=== PATIENT | female | born 1940 | race Asian ===

== ENCOUNTER 2016-12-15 10:59 | Emergency (ER) | payer MEDICARE, OTHER ==
[~2016-12-15] VITALS: Ht 160 cm; Wt 63.5 kg
[2016-12-15 11:29] VITALS: BP 132/42
[2016-12-15 12:00] LABS: Basophils # (auto) 0.1 uL; Basophils % (auto) 0.5 % (0.0-2.0); CONDITION Y; Eosinophils # (auto) 0.1 uL; Eosinophils % (auto) 1.1 % (0.0-7.0); Hematocrit 41.5 % (36.0-46.0); Hemoglobin 14.1 g/dL (12.2-16.2); Lymphocytes # (auto) 3.3 uL; Lymphocytes % (auto) 29.1 % (10.0-50.0); Mean Corpuscular Hemoglobin 30.6 pg (28.0-32.0); Mean Corpuscular Volume 90.2 fL (80.0-100.0); Mean Platelet Volume 8.6 fL (7.4-10.4); Monocytes # (auto) 0.7 uL; Monocytes % (auto) 6.4 % (0.0-12.0); Neutrophils # (auto) 7.1 uL; Neutrophils % (auto) 62.9 % (37.0-80.0); Platelet Count (auto) 195 10^3/uL (140-450); Red Cell Distribution Width 14.3 % (11.6-16.0); White Blood Cell 11.2 10^3/uL (4.4-10.8)
[2016-12-15] MEDS ORDERED: PHENAZOPYRIDINE HCL 100 MG TAB PO ONE (12:00)
[2016-12-15 12:23] LABS: Albumin 3.9 g/dL (3.4-5.0); BUN/Creatinine Ratio 31.9; Bilirubin, Total 0.5 mg/dL (0.2-1.0); Calcium 9.4 mg/dL (8.5-10.1); Total Protein 7.4 g/dL (6.4-8.2)
[2016-12-15 13:05] LABS: Urine Bilirubin Negative (Negative); Urine Color Brown (Yellow); Urine Glucose Normal (Normal); Urine Ketone Negative (Negative); Urine Urobilinogen Normal (Negative)
[2016-12-15 13:30] LABS: Urine Blood 3+ /uL (Negative); Urine Nitrite POSITIVE (Negative)
[2016-12-15 13:31] LABS: Urine Squamous Epithelial Cell FEW /hpf (<5); Urine WBC Clumps Present /hpf (None Seen)
[2016-12-15] MEDS ORDERED: cefTRIAXone SOD 1,000 MG VL IM ONE (14:00)
== END 2016-12-15 14:20 | disposition home or self-care (01) ==
LOC: ER 10:59
DX: N39.0 Urinary tract infection, site not specified (principal); N20.0 Calculus of kidney; K21.9 Gastro-esophageal reflux disease without esophagitis; I10 Essential (primary) hypertension; E78.5 Hyperlipidemia, unspecified; Z88.0 Allergy status to penicillin
CPT/HCPCS: 36415; 74176; 80053; 81001; 85025; 96372; 99285; J0696

== ENCOUNTER 2017-08-26 14:47 | Emergency (ER) | payer MEDICARE, OTHER ==
[~2017-08-26] VITALS: Ht 162.6 cm; Wt 70.3 kg
[2017-08-26 15:46] LABS: Basophils # (auto) 0.1 uL; Basophils % (auto) 1.2 % (0.0-2.0); Eosinophils # (auto) 0.1 uL; Eosinophils % (auto) 0.8 % (0.0-7.0); Hematocrit 43.8 % (36.0-46.0); Hemoglobin 14.6 g/dL (12.2-16.2); Lymphocytes # (auto) 2.2 uL; Mean Corpuscular Hemoglobin 30.9 pg (28.0-32.0); Mean Corpuscular Hgb Conc. 33.2 g/dL (32.0-36.0); Mean Corpuscular Volume 93.2 fL (80.0-100.0); Monocytes # (auto) 0.6 uL; Monocytes % (auto) 8.9 % (0.0-12.0); Neutrophils # (auto) 3.7 uL; Neutrophils % (auto) 56.1 % (37.0-80.0); Nucleated Red Blood Cells % 0.2 %; Platelet Count (auto) 244 10^3/uL (140-450); Red Cell Distribution Width 15.4 % (11.8-14.3); White Blood Cell 6.6 10^3/uL (4.4-10.8)
[2017-08-26 16:01] LABS: Albumin 3.8 g/dL (3.4-5.0); Anion Gap 9 (5-15); Blood Urea Nitrogen 24 mg/dL (7-18); Calcium 8.8 mg/dL (8.5-10.1); Carbon Dioxide 21 mmol/L (21-32); Chloride 112 mmol/L (98-107); Glucose 111 mg/dL (74-106); Potassium 4.2 mmol/L (3.5-5.1); Sodium 142 mmol/L (136-145)
[2017-08-26 16:03] LABS: Alanine Aminotransferase 82 U/L (13-56); Aspartate Aminotransferase 45 U/L (15-37); BUN/Creatinine Ratio 17.1; GFR African American 47 mL/min; GFR Non-African American 39 mL/min
[2017-08-26 16:08] LABS: Alkaline Phosphatase 80 U/L (45-117); Bilirubin, Total 0.6 mg/dL (0.2-1.0)
[2017-08-26 21:42] VITALS: BP 125/62
== END 2017-08-26 22:11 | disposition home or self-care (01) ==
LOC: MERGE 14:47 → ER 14:47
DX: R06.00 Dyspnea, unspecified (principal); R53.1 Weakness; I10 Essential (primary) hypertension; E78.00 Pure hypercholesterolemia, unspecified; Z87.891 Personal history of nicotine dependence; Z88.0 Allergy status to penicillin
CPT/HCPCS: 36415; 71046; 80053; 84484; 85025; 93005

== ENCOUNTER → 2017-08-27 | Outpatient (CLI) | payer MEDICARE, OTHER ==
[2017-08-29 10:20] LABS: Hepatitis B Surface Antibody Positive
[2017-08-29 10:32] LABS: Hepatitis B Surface Antigen Negative (Negative)
[2017-08-29 10:54] LABS: Hepatitis C Antibody Negative (Negative)
[2017-08-29 10:55] LABS: Hepatitis A Total Antibody Negative
[2017-08-29 12:54] LABS: Hepatitis B Core Total AB Positive
== END | disposition home or self-care (01) ==
LOC: MERGE 14:28 → LAB 14:28
PROVIDERS: ATTEND Physician Assistant
DX: Z11.3 Encounter for screening for infections with a predominantly sexual mode of transmission (principal); I10 Essential (primary) hypertension; E78.00 Pure hypercholesterolemia, unspecified; Z20.2 Contact with and (suspected) exposure to infections with a predominantly sexual mode of transmission; Z87.891 Personal history of nicotine dependence
CPT/HCPCS: 36415; 86592; 86695; 86696; 86704; 86706; 86708; 86803; 87340

== ENCOUNTER → 2021-01-26 | Outpatient (CLI) | payer MEDICARE, OTHER ==
[2021-01-26 11:03] LABS: Urine WBC None Seen /hpf (0 - 5)
[2021-01-26 11:10] LABS: Urine Bacteria NONE SEEN /hpf (None Seen); Urine Blood TRACE /uL (Negative); Urine Specific Gravity 1.005 (1.001-1.035)
== END | disposition home or self-care (01) ==
LOC: LAB 10:59
PROVIDERS: ATTEND Urology
DX: N39.0 Urinary tract infection, site not specified (principal)
CPT/HCPCS: 81001; 87086

== ENCOUNTER → 2021-04-13 | Day surgery (SDC) | payer MEDICARE, OTHER ==
[2021-04-10 11:35] LABS: Urine Bacteria NONE SEEN /hpf (None Seen); Urine Blood Negative /uL (Negative); Urine Specific Gravity 1.016 (1.001-1.035); Urine WBC <1 /hpf (0 - 5)
[2021-04-10 12:06] LABS: Basophils # (auto) 0.1 10 ^3/uL (0-0.2); Basophils % (auto) 0.9 % (0.0-2.0); Eosinophils # (auto) 0.1 10 ^3/uL (0-0.8); Eosinophils % (auto) 1.3 % (0.0-7.0); Hemoglobin 14.4 g/dL (12.2-16.2); Lymphocytes # (auto) 3.1 10 ^3/uL (0.4-5.4); Lymphocytes % (auto) 44.6 % (10.0-50.0); Mean Corpuscular Hemoglobin 31.4 pg (28.0-32.0); Mean Corpuscular Hgb Conc. 34.2 g/dL (32.0-36.0); Monocytes # (auto) 0.7 10 ^3/uL (0-1.3); Monocytes % (auto) 9.4 % (0.0-12.0); Neutrophils % (auto) 43.8 % (37.0-80.0); Red Blood Cells 4.57 10^6/uL (4.0-5.20); Red Cell Distribution Width 14.5 % (11.8-14.3); White Blood Cell 6.9 10^3/uL (4.4-10.8)
[2021-04-10 12:13] LABS: Potassium 3.9 mmol/L (3.5-5.1)
[2021-04-10 13:01] LABS: Albumin 3.6 g/dL (3.4-5.0); BUN/Creatinine Ratio 32.8; Bilirubin, Total 0.3 mg/dL (0.2-1.0); Calcium 9.6 mg/dL (8.5-10.1); Total Protein 7.3 g/dL (6.4-8.2)
[~2021-04-13] VITALS: Ht 162.6 cm; Wt 70.3 kg
[~2021-04-13] MED LIST: AMLO-489 PO; ATOR20TA PO; DexAMETHasone SOD PHOS 10MG/1ML VIAL INJ ONE; HYDROmorphone HCL 2 MG/ML VL IV PRN; LABETALOL HCL 5 MG/ML 4ML SYRINGE IV PRN; MEPERIDINE HCL (25 MG/ML) 1ML VIAL ONE; MIDAZOLAM HCL 2MG/2ML 2ml VIAL (1mg/ml) IV PRN; MIDAZOLAM HCL 2MG/2ML 2ml VIAL (1mg/ml) ONE; MORPHINE SULFATE 4 MG/ML SYR/VIAL IV PRN; OMEP-434 PO; ONDANSETRON HCL 4 MG/2 ML VIAL IV PRN; PROPOFOL 10 MG/ML 20 ML IV ONE; ceFAZolin 1GM/50ML 50 ML IV ONE; ePHEDrine SULFATE 50 MG/ML AMP IV PRN; fentaNYL CITRATE 100 MCG/2 ML VL ONE; hydrALAZINE HCL 20 MG/ML VL IV PRN
[2021-04-13 14:30] VITALS: BP 136/61
== END | disposition home or self-care (01) ==
LOC: SUR 08:40
PROVIDERS: ATTEND Urology
DX: N32.9 Bladder disorder, unspecified (principal); I25.10 Atherosclerotic heart disease of native coronary artery without angina pectoris; I10 Essential (primary) hypertension; E78.5 Hyperlipidemia, unspecified; Z88.0 Allergy status to penicillin; Z79.899 Other long term (current) drug therapy; Z98.890 Other specified postprocedural states; Z20.822 Contact with and (suspected) exposure to COVID-19
CPT/HCPCS: 36415; 52224; 80053; 81001; 85025; J0690; J1100; J2175; J2250; J2405; J2704; J3010; J7030; U0003

== ENCOUNTER → 2022-08-10 | Outpatient (CLI) | payer MEDICARE, OTHER ==
[~2022-08-10] MED LIST changes: -DexAMETHasone SOD PHOS 10MG/1ML VIAL INJ ONE; -HYDROmorphone HCL 2 MG/ML VL IV PRN; -LABETALOL HCL 5 MG/ML 4ML SYRINGE IV PRN; -MEPERIDINE HCL (25 MG/ML) 1ML VIAL ONE; -MIDAZOLAM HCL 2MG/2ML 2ml VIAL (1mg/ml) IV PRN; -MIDAZOLAM HCL 2MG/2ML 2ml VIAL (1mg/ml) ONE; -MORPHINE SULFATE 4 MG/ML SYR/VIAL IV PRN; -ONDANSETRON HCL 4 MG/2 ML VIAL IV PRN; -PROPOFOL 10 MG/ML 20 ML IV ONE; -ceFAZolin 1GM/50ML 50 ML IV ONE; -ePHEDrine SULFATE 50 MG/ML AMP IV PRN; -fentaNYL CITRATE 100 MCG/2 ML VL ONE; -hydrALAZINE HCL 20 MG/ML VL IV PRN
== END | disposition home or self-care (01) ==
LOC: LAB 13:40
PROVIDERS: ATTEND Family Medicine
DX: L82.1 Other seborrheic keratosis (principal)
CPT/HCPCS: 88302

== ENCOUNTER 2023-11-11 10:06 | Emergency (ER) | payer MEDICARE, OTHER ==
[~2023-11-11] VITALS: Ht 162.6 cm; Wt 74.7 kg
[~2023-11-11 10:06] MED LIST changes: -AMLO-489 PO; +AMLO1TAB22 PO
[2023-11-11 14:23] VITALS: BP 118/54; PULSE 70; RESP 19; TEMP 97.8; O2SAT 93
[2023-11-11] MEDS ORDERED: ACET-1882 PO (14:23)
== END 2023-11-11 14:23 | disposition home or self-care (01) ==
LOC: ER 10:06
DX: S83.91XA Sprain of unspecified site of right knee, initial encounter (principal); K21.9 Gastro-esophageal reflux disease without esophagitis; E78.5 Hyperlipidemia, unspecified; I10 Essential (primary) hypertension; Z88.0 Allergy status to penicillin; X50.1XXA Overexertion from prolonged static or awkward postures, initial encounter; Y93.01 Activity, walking, marching and hiking; Y92.89 Other specified places as the place of occurrence of the external cause; Y99.8 Other external cause status
CPT/HCPCS: 29505; 73564

== ENCOUNTER 2024-04-21 17:15 | Emergency (ER) | payer MEDICARE, OTHER ==
[~2024-04-21] VITALS: Ht 162.6 cm; Wt 74.8 kg
[~2024-04-21 17:15] MED LIST changes: +ACET-1882 PO
--- NOTE | 2024-04-21 19:08 | DVH ---
Procedure: CT MAXILLOFACIAL WITHOUT Study Date and Requested Time: 04/21/2024 06:27 PM History: fall Comparison: None Dose: CTDI: 64.71 mGy DLP: 1285.38 mGycm Technique: Multiplanar images obtained through the face without intravenous contrast. Findings: No evidence of acute fracture . Status post rhinoplasty. Nonspecific 0.4 by 0.2 cm density over the left upper eye lid. Otherwise, Orbits and globes grossly u nremarkable. Mild mucoperiosteal thickening of the ethmoid air cells . Otherwise , the Paranasal sinuses and mast oids clear. Nasal septum midline position. Nasal cavity and visualized nasopharynx and oropharynx grossly unremar kable with no evidence of focal lesion. Bilateral palatine tonsilliths are noted. 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 Impression: No evidence of acute traumatic fractures. 0.2 x 0.4 cm density over the right upper eyelid. Correlate for possible foreign body. Otherwise, or bits and globes are unremarkable.
--- NOTE | 2024-04-21 19:30 | ED.PDOC ---
[place]. trauma (HPI) HPI Comments 84yo female complaining of Rt side facial pain after having trip and fall today. says she was turning when her Rt knee gave out and she fell to the floor hitting her face on the floor. no LOC. no visual problems. denies being on any blood thinners Chief Complaint: Fall Injury Time Seen by MD: 17:50 Primary Care Provider: JONI Reviewed notes: Nurses Notes Allergies: Coded Allergies: Penicillins (Verified Allergy, Unknown, 12/15/16) Home Meds Active Scripts Acetaminophen (Acetaminophen) 325 Mg Tab, 325 MG PO QID for 7 Days, #28 TAB 0 Refills Prov:MOY DE LOS SANTOS Jeevan UNIFORM ATTENDANT 11/11/23 Reported Medications Omeprazole Magnesium (Omeprazole) 20 Mg Tab, 20 MG PO, TAB 04/10/21 Amlodipine Besylate (Amlodipine Besylate) 5 Mg Tab, 5 MG PO DAILY, TAB 04/10/21 Atorvastatin Calcium (Lipitor) 20 Mg Tab, 20 MG PO DAILY, TAB 04/10/21 Information Source: Patient Mode of Arrival: Ambulatory Severity: Mild Past Medical History PAST MEDICAL HISTORY: GERD, High Lipids, HTN Surgical History: Denies all surgeries PROFESSOR OF APOLOGETICS History: No Pertinent PROFESSOR OF APOLOGETICS History Family History Family History: Reviewed,noncontributory to illness, Unknown Social History Smoker: Non-Smoker Alcohol: Denies ETOH Use Drugs: Denies Drug Use Lives In: Home Constitutional: denies: chills, diaphoresis, fatigue, fever, malaise, sweats, weakness, others EENTM: denies: blurred vision, double vision, ear bleeding, ear discharge, ear drainage, ear pain, ear ringing, eye pain, eye redness, hearing loss, mouth pain, mouth swelling, nasal discharge, nose bleeding, nose congestion, nose pain, photophobia, tearing, throat pain, throat swelling, voice changes, others Respiratory: denies: cough, hemoptysis, orthopnea, SOB at rest, shortness of breath, SOB with excertion, stridor, wheezing, others Cardiovascular: denies: chest pain, dizzy spells, diaphoresis, Dyspnea on exertion, edema, irregular heart beat, left arm pain, lightheadedness, palpitations, PND, syncope, others Gastrointestinal: denies: abdomen distended, abdominal pain, blood streaked bowels, constipated, diarrhea, dysphagia, difficulty swallowing, hematemesis, melena, nausea, poor appetite, poor fluid intake, rectal bleeding, rectal pain, vomiting, others Genitourinary: denies: abnormal vagina bleeding, burning, dyspareunia, dysuria, flank pain, frequency, hematuria, incontinence, pain, , vagina discharge, urgency, others Neurological: denies: dizziness, fainting, headache, left sided numbness, left sided weakness, numbness, paresthesia, pre-existing deficit, right sided numbness, right sided weakness, seizure, speech problems, tingling, tremors, weakness, others Musculoskeletal: denies: back pain, gout, joint pain, joint swelling, muscle pain, muscle stiffness, neck pain, others Integumetry: denies: bruises, change in color, change in hair/nails, dryness, laceration, lesions, lumps, rash, wounds, others Allergic/Immunocompromised: denies: Difficulty Healing, Frequent Infections, Hives, Itching, others Hematologic/Lymphatic: denies: anemia, blood clots, easy bleeding, easy bruising, swollen glands, others Physical Exam General Appearance: No Apparent Distress, Normal HEENT: Head (Pelvic, swelling noted on the right-sided cheek, no deformity, no crepitus.) Neck: Full Range of Motion, Non-Tender, Normal, Normal Inspection Respiratory: Chest Non-Tender, Lungs Clear, No Accessory Muscle Use, No Respiratory Distress, Normal Breath Sounds Cardiovascular: No Edema, No JVD, No Murmur, No Gallop, Normal Peripheral Pulses, Regular Rate/Rhythm Breast Exam: Deferred Gastrointestinal: No Organomegaly, Non Tender, No Pulsatile Mass, Normal Bowel Sounds, Soft Genitalia: Deferred Pelvic: Deferred Rectal: Deferred Extremities: No calf tenderness, Normal capillary refill, Normal inspection, Normal range of motion, Non-tender, No pedal edema Musculoskeletal : Apperance: Normal Neurologic: Alert, hims manager II-XII nml as Tested, No Motor Deficits, Normal Affect, Normal Mood, No Sensory Deficits Cerebellar Function: Normal Reflexes: Normal Skin: Dry, Normal Color, Warm Lymphatic: No Adenopathy Was a procedure done? Was a procedure done?: No Differential Diagnosis Multiple Trauma: Closed Head Injury, Cardiac Injury, Fractures X-Ray, Labs, Meds, VS Vital Signs Date Time Temp Pulse Resp B/P (MAP) Pulse Ox O2 Delivery O2 Flow Rate FiO2 04/21/24 17:48 77 04/21/24 17:45 97.8 86 16 124/69 (87) 96 X-Ray, Labs, Meds, VS Comment Imaging: X-rays and CT scans were reviewed and interpreted by this provider, imaging shows no fractures and no pathological disease. Pending radiology review. Laboratory: Labs reviewed and interpreted by this provider. No significant abnormalities noted. Patient has prior medical visits reviewed. Med reconciliation performed Vital signs reviewed Time of 1ST Reevaluation: 19:29 Reevaluation 1ST: Improved Patient Education/Counseling: Diagnosis, Treatment, Need For Follow Up (Patient advised to follow-up in the emergency room in the next 24 to 48 hours if symptoms do not improve. Advised follow-up with PCP in the next 3 to 5 days. Patient verbalized understanding. ) Family Education/Counseling: No Family Present Departure 1 Departure Time of Disposition: 19:29 Impression: Primary Impression: Facial contusion Qualified Codes: S00.83XA - Contusion of other part of head, initial encounter Disposition: HOME / SELF CARE / HOMELESS Condition: Fair Discharged With: Self Critical Care Note Critical Care Time?: No Stability Stability form required: No Heart Score Heart Score: Heart Score Response (Comments) Value History N/A 0 EKG N/A 0 Age N/A 0 Risk Factors N/A 0 Troponin N/A 0 Total 0 UNIQUE BATISTA Apr 21, 2024 19:30
[2024-04-21 23:00] VITALS: BP 132/72; PULSE 72; RESP 18; TEMP 98; O2SAT 96
--- NOTE | 2024-04-22 14:40 | ECG ---
[facility] Test Date: 2024-04-21 Test Time: 17:48:24 Pat Name: VLAD PENA Department: er Room: Gender: F Setup Technician: gp : [id number] Requested By: UNIQUE BATISTA Order Number: [id number] Reading MD: Measurements Intervals [place] Rate: 77 P: 55 OR: 170 QRS: 18 QRSD: 83 T: -8 QT: 381 QTc: 432 Interpretive Statements Sinus rhythm Borderline T abnormalities, inferior leads Please click the below link to view image of tracing.
== END 2024-04-21 23:12 | disposition home or self-care (01) ==
LOC: ER 17:15
DX: S00.83XA Contusion of other part of head, initial encounter (principal); I10 Essential (primary) hypertension; K21.9 Gastro-esophageal reflux disease without esophagitis; E78.5 Hyperlipidemia, unspecified; Z88.0 Allergy status to penicillin; Z79.899 Other long term (current) drug therapy; W01.198A Fall on same level from slipping, tripping and stumbling with subsequent striking against other object, initial encounter; Y93.89 Activity, other specified; Y92.89 Other specified places as the place of occurrence of the external cause; Y99.8 Other external cause status
CPT/HCPCS: 70486; 93005

== ENCOUNTER 2025-05-08 10:26 | Inpatient (IN) | payer MEDICARE, OTHER ==
[~2025-05-08] VITALS: Ht 162.6 cm; Wt 78.0 kg
--- NOTE | 2025-05-08 12:28 | ED.PDOC ---
History of Present Illness HPI Comments 85 y/o F, with a Hx of GERD, presents with c/c of nonradiating, epigastric abdominal pain. Patient endorses on sudden onset of symptoms, this morning, after eating her breakfast and taking her morning medications. No recent trauma, sick contacts, or spicy or spoiled food consumption. She denies any nausea, v omiting, diarrhea, constipation, urinary problems, or further acute symptoms. Notable recent bronchitis diagnosis and antibiotic placement following urgent care visit on 05/03/25. Patient reports stopping antibiotics after taking it for the first time on 05/05/25, due to causing her mild abdominal discomfort, which subsided prior to today's pain onset. Chief Complaint: Abdominal Pain Time Seen by MD: 12:20 Primary Care Provider: JONI Reviewed Notes: Nurses Notes, Medications, Allergies Allergies: Coded Allergies: Penicillins (Verified Allergy, Unknown, 12/15/16) Home Meds Active Scripts Acetaminophen (Acetaminophen) 325 Mg Tab, 325 MG PO QID for 7 Days, #28 TAB 0 Refills Prov:MOY DE LOS SANTOS GEODETIC COMPUTATOR 11/11/23 Reported Medications Omeprazole Magnesium (Omeprazole) 20 Mg Tab, 20 MG PO, TAB 04/10/21 Amlodipine Besylate (Amlodipine Besylate) 5 Mg Tab, 5 MG PO DAILY, TAB 04/10/21 Atorvastatin Calcium (Lipitor) 20 Mg Tab, 20 MG PO DAILY, TAB 04/10/21 Information Source: Patient Mode of Arrival: Ambulatory Severity: Moderate Timing: Hours Duration: Since onset Prehospital treatment: None Past Medical History PAST MEDICAL HISTORY: GERD, High Lipids, HTN Surgical History: Denies all surgeries EDUCATIONAL RECRUITER History: No Pertinent EDUCATIONAL RECRUITER History Family History Family History: Reviewed,noncontributory to illness, Unknown Social History Smoker: Non-Smoker Alcohol: Denies ETOH Use Drugs: Denies Drug Use Lives In: Home All Other Systems: Reviewed and Negative (Comprehensive review of systems are negative unless stated in HPI) Physical Exam General Appearance: No Apparent Distress, Normal HEENT: Normal ENT Inspection, Pharynx Normal, TMs Normal Neck: Full Range of Motion, Non-Tender, Normal, Normal Inspection Respiratory: Chest Non-Tender, Lungs Clear, No Accessory Muscle Use, No Respiratory Distress, Normal Breath Sounds Cardiovascular: No Edema, No JVD, No Murmur, No Gallop, Normal Peripheral Pulses, Regular Rate/Rhythm Breast Exam: Deferred Gastrointestinal: Epigastric (tenderness), No Organomegaly, No Pulsatile Mass, Normal Bowel Sounds, Soft, Tenderness (epigastric ) Genitalia: Deferred Pelvic: Deferred Rectal: Deferred Extremities: No calf tenderness, Normal capillary refill, Normal inspection, Normal range of motion, Non-tender, No pedal edema Musculoskeletal : Apperance: Normal Neurologic: Alert, sr risk management consultant II-XII nml as Tested, No Motor Deficits, Normal Affect, Normal Mood, No Sensory Deficits Cerebellar Function: Normal Reflexes: Normal Skin: Dry, Normal Color, Warm Lymphatic: No Adenopathy Was a procedure done? Was a procedure done?: No Differential Dx Considerations may include: gastritis, gastroenteritis, GERD, PUD, cholelithiasis, cholecystitis, among others X-Ray, Labs, Meds, VS Vital Signs Date Time Temp Pulse Resp B/P (MAP) Pulse Ox O2 Delivery O2 Flow Rate FiO2 05/08/25 10:54 72 05/08/25 10:37 98.1 80 18 141/74 95 98.1 Lab Test 05/08/25 12:20 Range/Units White Blood Count 8.1 4.4-10.8 10^3/uL Red Blood Count 5.25 H 4.0-5.20 10^6/uL Hemoglobin 16.1 12.2-16.2 g/dL Hematocrit 47.9 H 36.0-46.0 % Mean Corpuscular Volume 91.3 80.0-100.0 fL Mean Corpuscular Hemoglobin 30.6 28.0-32.0 pg Mean Corpuscular Hemoglobin Concent 33.5 32.0-36.0 g/dL Red Cell Distribution Width 14.4 H 11.8-14.3 % Platelet Count 208 140-450 10^3/uL Mean Platelet Volume 8.5 6.9-10.8 fL Neutrophils (%) (Auto) 59.2 37.0-80.0 % Lymphocytes (%) (Auto) 27.1 10.0-50.0 % Monocytes (%) (Auto) 9.7 0.0-12.0 % Eosinophils (%) (Auto) 3.2 0.0-7.0 % Basophils (%) (Auto) 0.8 0.0-2.0 % Neutrophils # (Auto) 4.8 1.6-8.6 10 ^3/uL Lymphocytes # (Auto) 2.2 0.4-5.4 10 ^3/uL Monocytes # (Auto) 0.8 0-1.3 10 ^3/uL Eosinophils # (Auto) 0.3 0-0.8 10 ^3/uL Basophils # (Auto) 0.1 0-0.2 10 ^3/uL Nucleated Red Blood Cells 0.1 % Sodium Level 142 136-145 mmol/L Potassium Level 3.8 3.5-5.1 mmol/L Chloride Level 108 H 98-107 mmol/L Carbon Dioxide Level 20 20-31 mmol/L Anion Gap 14 5-15 Blood Urea Nitrogen 16 9-23 mg/dL Creatinine 0.73 0.550-1.02 mg/dL Glomerular Filtration Rate Calc 82 >90 mL/min BUN/Creatinine Ratio 21.9 H 10.0-20.0 Serum Glucose 136 H 74-106 mg/dL Calcium Level 9.4 8.7-10.4 mg/dL Total Bilirubin 0.5 0.2-1.0 mg/dL Aspartate Amino Transferase (AST) 46 H 13-40 U/L Alanine Aminotransferase (ALT) 62 H 7-40 U/L Alkaline Phosphatase 88 46-116 U/L Total Protein 7.6 5.7-8.2 g/dL Albumin 4.5 3.2-4.8 g/dL Lipase 63 H 12-53 U/L Time of 1ST Reevaluation: 12:50 Reevaluation 1ST: Unchanged Patient Education/Counseling: Diagnosis, Treatment Family Education/Counseling: No Family Present SEPSIS Sepsis Screen Date sepsis recognized/suspect: May 08, 2025 Time Sepsis recognized/suspect: 1042 Recent Procedure: No On Antibiotic Therapy: Yes Respiratory Rate >20: No Heart Rate >90: No Temp<36 C (96.8 F) or >38.3 C: No SBP <90 or MAP <65 mmHG: No New Acute Mental Status Change: No Is the patient on CPAP, BIPAP,: No Physician Orders Electrocardigram (05/08/25 10:47) Urinalysis (05/08/25 12:21) Chest Portable (05/08/25 12:21) Ct Ab Pel Wo Con-No Oral Or Iv (05/08/25 13:18) Vital Signs Date Time Temp Pulse Resp B/P (MAP) Pulse Ox O2 Delivery O2 Flow Rate FiO2 05/08/25 10:54 72 05/08/25 10:37 98.1 80 18 141/74 95 98.1 Laboratory Tests Test 05/08/25 12:20 White Blood Count 8.1 10^3/uL (4.4-10.8) Departure 1 Departure Time of Disposition: 15:58 (Patient presented with abdominal pain that was concerning for possible appendicits, gastritis, cholecystitis, colitis, gastroenteritis, sbo, or orther possible surgical emergency. Data: 1. I ordered and reviewed the result of at least 3 labs including a CBC, BMP, and Urinalysis. 2. I independently interpreted the following tests: CT Abdomen and Pelvis is concerning for large stool burden .Risk:This patient has a high risk of morbidity due to further diagnostic testing or treatment and may suffer from an acute abdominal process disorder. Workup reveals intractable abdominal pain and patient should be admitted for further workup. and possible expert consultation. ) Impression: Primary Impression: Intractable abdominal pain Additional Impression: Unable to eat Disposition: ADMITTED INPATIENT Admit to: Med Surg Condition: Guarded Critical Care Note Critical Care Time?: Yes Critical care comment: Intractable abdominal pain Authorized and Performed by: Beck Charles MD Total critical care time: Approximately 39 minutes Due to a high probability of clinically significant, life threatening deterioration, the patient required my highest level of preparedness to intervene emergently and I personally spent this critical care time directly and personally managing the patient. This critical care time included obtaining a history; examining the patient; pulse oximetry; ordering and review of studies; arranging urgent treatment with development of a management plan; evaluation of patient's response to treatment; frequent reassessment; and, discussions with other providers. This critical care time was performed to assess and manage the high probability of imminent, life-threatening deterioration that could result in multi-organ failure. It was exclusive of separately billable procedures and treating other patients and teaching time. Please see my other sections and the rest of the note for further information on patient assessment and treatment. Stability Stability form required: No Heart Score Heart Score: Heart Score Response (Comments) Value History N/A 0 EKG N/A 0 Age N/A 0 Risk Factors N/A 0 Troponin N/A 0 Total 0 I personally scribed for BECK CHARLES MD ([email or web address]) on 05/08/25 at 12:28. Electronically submitted by Gurmeet Parr ([email or web address]). BECK CHARLES MD May 08, 2025 12:28
[2025-05-08 13:03] LABS: Hematocrit 47.9 % (36.0-46.0); Hemoglobin 16.1 g/dL (12.2-16.2); Mean Corpuscular Hemoglobin 30.6 pg (28.0-32.0); Mean Corpuscular Volume 91.3 fL (80.0-100.0); Nucleated Red Blood Cells % 0.1 %
--- NOTE | 2025-05-08 13:05 | DVH ---
CLINICAL HISTORY: epigastric pain TECHNIQUE: Single view of the chest was obtained. COMPARISON: CXR2 on DOS: 12/15/21, CHEST TWO VIEWS ROUTINE on DOS: 12/15/21, CHEST TWO VIEWS ROUTINE on DOS: 06/04/21, CHEST TWO VIEWS ROUTINE on DOS: 04/10/21 FINDINGS: The heart size and pulmonary vasculature are normal. The lungs are clear. IMPRESSION: NO ACUTE CARDIOPULMONARY PROCESS.
[2025-05-08 13:22] LABS: Albumin 4.5 g/dL (3.2-4.8); Alkaline Phosphatase 88 U/L (46-116); Anion Gap 14 (5-15); BUN/Creatinine Ratio 21.9 (10.0-20.0); Blood Urea Nitrogen 16 mg/dL (9-23); Calcium 9.4 mg/dL (8.7-10.4); Potassium 3.8 mmol/L (3.5-5.1); Sodium 142 mmol/L (136-145); Total Protein 7.6 g/dL (5.7-8.2)
[2025-05-08 13:23] LABS: Bilirubin, Total 0.5 mg/dL (0.2-1.0)
[2025-05-08 13:52] LABS: Alanine Aminotransferase 62 U/L (7-40); Carbon Dioxide 20 mmol/L (20-31); Chloride 108 mmol/L (98-107); Glucose 136 mg/dL (74-106); Lipase 63 U/L (12-53)
--- NOTE | 2025-05-08 14:42 | DVH ---
EXAM: CT CT AB PEL WO CON-NO ORAL OR IV INDICATION: abdominal pain TECHNIQUE: Volumetric multidetector CT images of the abdomen and pelvis were obtained without contrast. All CT scans at this facility use dose modulation, iterative reconstruction, and/or weight based dosing when appropriate to reduce radiation dose to as low as reasonably achievable. COMPARISON: CT ABD PELVIS WO CONTRAST on DOS: 01/26/21 FINDINGS: [LOWER CHEST]: The partially visualized lung bases are clear without a pleural effusion. The cardiac size is normal without pericardial effusion. Coronary artery calcifications. [LIVER]: Normal hepatic size without suspicious focal lesion. [GALLBLADDER AND BILIARY TREE]: No cholelithiasis. [SPLEEN]: Unremarkable. [PANCREAS]: Unremarkable. [ADRENAL GLANDS]: Unremarkable [KIDNEYS]: Benign-appearing cysts of the left posterior inferior kidney. No hydronephrosis. No nephroureterolithiasis. No suspicious focal lesion. [BLADDER]: Unremarkable for the degree distention. [REPRODUCTIVE ORGANS]: Unremarkable. [BOWEL/MESENTERY]: Stomach is normal. [id number] stool burden. Ascending colonic diverticulosis. Appendix is poorly visualized. Appearance of small bowel fecalization in the lower pelvis. No CT evidence of bowel obstruction. [ASCITES]: Absent [LYMPHADENOPATHY]: No pathologically enlarged lymph nodes by CT size criteria [VASCULATURE]: No aneurysmal dilatation. [ABDOMINAL WALL]: Gluteal subcutaneous adipose tissue calcifications. Unremarkable. [MUSCULOSKELETAL]: No acute fracture or aggressive focal osseous lesion. Apposing degenerative change at L4-5. Multifocal degenerative change of the visualized spine. IMPRESSION: 1. [id number] stool burden. 2. Correlate for constipation. 3. Small bowel fecalization in the lower pelvis. 4. Correlate for slow small bowel transit versus malabsorption.
[2025-05-08] MEDS: ONDANSETRON ODT 4 MG TAB PO ONE (17:47)
[2025-05-08] MEDS: MAALOX PLUS or MAALOX 30 ML PO ONE (17:47)
[2025-05-08] MEDS: PANTOPRAZOLE 40 MG/10 ML VIAL INJ IV ONE (17:47)
[2025-05-08] MEDS: SODIUM CHLORIDE 0.9% 1,000 ML IV ONE (17:49)
[2025-05-08] MEDS ORDERED: HYDROcodone-ACET 5/325MG TAB PO PRN (22:15)
[2025-05-08] MEDS ORDERED: ACETAMINOPHEN 325 MG TAB PO PRN (22:15)
[2025-05-08] MEDS ORDERED: ONDANSETRON HCL 4 MG/2 ML VIAL IV PRN (22:15)
--- NOTE | 2025-05-08 23:50 | DVHHP2 ---
History of Present Illness Reason for Visit: Intractable abdominal pain History of Present Illness The patient is a 85-year-old female with past medical history of GERD, hyperlipidemia, and hypertension who presented to [facility] ED with complaint of nonradiating epigastric abdominal pain. Patient reports sudden onset of symptoms, this morning, after eating her breakfast and taking her morning medications. Patient was recently seen at urgent care on May 03, 2025 for bronchitis and was placed on antibiotic regimen. Patient reports stopping antibiotics after taking it for the first time on 05/05/25, due to causing her mild abdominal discomfort, which subsided prior to today's pain onset. Patient was seen and evaluated in the ED, laboratory data shows WBC 8.1, platelets 208, sodium 142, potassium 3.8, BUN 16, creatinine 0.73, GFR 82, glucose 136, calcium 9.4, AST 46, ALT 62, lipase 63, blood pressure 175/75, heart rate 86, temperature 97.6 F, O2 saturation 96% on room air. Abdomen/pelvis CT revealing mild to moderate stool burden correlate for constipation; small-bowel fecalization in the lower pelvis correlate for slow small-bowel transit versus malabsorption. Please see medication orders section in the computer. On my assessment, patient denied chest pain, no headache, dizziness, shortness of breaths, diaphoresis, no diarrhea, nausea, vomiting, fever, no chills. Patient was admitted for further evaluation and medical management. Past Medical History GERD, High Lipids, HTN Past Surgical History Denies all surgeries Family History Reviewed, noncontributory to the management of this case. Past Social History The patient lives at home, denies smoking, alcohol or illicit drugs abuse. Review of Systems Constitutional: Yes: Weakness; No: Fever, Chills, Sweats, Malaise, Other Eyes: No: Pain, Vision change, Conjunctivae inflammation, Eyelid inflammation, Other, Redness ENT: No: Ear pain, Ear discharge, Nose pain, Nose discharge, Nose congestion, Mouth pain, Mouth swelling, Throat pain, Throat swelling, Other Respiratory: No: Cough, Dry, Shortness of breath, SOB with excertion, Wheezing, Hemoptysis, Pleuritic Pain, Sputum, Wheezing, Other Cardiovascular: No: Chest Pain, Palpitations, Orthopnea, Paroxysmal Noc. Dyspnea, Edema, Lt Headedness, Other Gastrointestinal: Abdominal Pain; No: Nausea, Vomiting, Diarrhea, Constipation, Melena, Hematochezia, Other Genitourinary: No Dysuria, No Frequency, No Incontinence, No Hematuria, No Retention, No Other Musculoskeletal: No: other, neck pain, shoulder pain, arm pain, back pain, hand pain, leg pain, foot pain Skin: No: Rash, Lesions, Jaundice, Bruising, Other Neurological: No: Weakness, Numbness, Incoordination, Change in speech, Confusion, Seizures, Other Allergies: Coded Allergies: Penicillins (Verified Allergy, Unknown, 12/15/16) Medications Current Medications Medications Dose Ordered Sig/Marcus Route Start Time Stop Time Status Last Admin Dose Admin Amlodipine Besylate 5 mg DAILY PO 05/09/25 10:00 Atorvastatin Calcium 20 mg HS PO 05/09/25 22:00 Pantoprazole Sodium 40 mg DAILY IV 05/09/25 10:00 Sodium Chloride 10 ml Q8HR IV 05/09/25 06:00 Acetaminophen/ Hydrocodone Bitart 1 tab Q4HP PRN PO 05/08/25 22:15 Ondansetron HCl 4 mg Q4HP PRN IV 05/08/25 22:15 Docusate Sodium 100 mg BIDPRN PRN PO 05/08/25 22:15 Acetaminophen 650 mg Q6HP PRN PO 05/08/25 22:15 Exam Vital Signs Vital Signs Date Time Temp Pulse Resp B/P (MAP) Pulse Ox O2 Delivery O2 Flow Rate FiO2 05/08/25 21:27 97.6 86 16 175/75 (108) 96 97.6 General Appearance: Alert, Oriented X3, Cooperative, No acute distress HEENT: Atraumatic, PERRLA, EOMI, Mucous membr. moist/pink Respiratory: Normal air movement Cardiovascular: Regular rate, Normal S1, Normal S2, No murmurs Abdominal: Normal bowel sounds, Soft, No tenderness, No hepatospenomegaly, No masses Extremities: No clubbing, No cyanosis, No edema, Normal pulses, No tenderness/swelling Skin: No rashes, No significant lesion Neuro: Normal speech, Normal tone, Sensation intact, Cranial nerves 3-12 NL, Reflexes 2+, Other (Generalized weakness) Psych/Mental Status: Mental status NL, Mood NL Labs/Xrays Labs Test 05/08/25 12:20 Range/Units White Blood Count 8.1 4.4-10.8 10^3/uL Red Blood Count 5.25 H 4.0-5.20 10^6/uL Hemoglobin 16.1 12.2-16.2 g/dL Hematocrit 47.9 H 36.0-46.0 % Mean Corpuscular Volume 91.3 80.0-100.0 fL Mean Corpuscular Hemoglobin 30.6 28.0-32.0 pg Mean Corpuscular Hemoglobin Concent 33.5 32.0-36.0 g/dL Red Cell Distribution Width 14.4 H 11.8-14.3 % Platelet Count 208 140-450 10^3/uL Mean Platelet Volume 8.5 6.9-10.8 fL Neutrophils (%) (Auto) 59.2 37.0-80.0 % Lymphocytes (%) (Auto) 27.1 10.0-50.0 % Monocytes (%) (Auto) 9.7 0.0-12.0 % Eosinophils (%) (Auto) 3.2 0.0-7.0 % Basophils (%) (Auto) 0.8 0.0-2.0 % Neutrophils # (Auto) 4.8 1.6-8.6 10 ^3/uL Lymphocytes # (Auto) 2.2 0.4-5.4 10 ^3/uL Monocytes # (Auto) 0.8 0-1.3 10 ^3/uL Eosinophils # (Auto) 0.3 0-0.8 10 ^3/uL Basophils # (Auto) 0.1 0-0.2 10 ^3/uL Nucleated Red Blood Cells 0.1 % Sodium Level 142 136-145 mmol/L Potassium Level 3.8 3.5-5.1 mmol/L Chloride Level 108 H 98-107 mmol/L Carbon Dioxide Level 20 20-31 mmol/L Anion Gap 14 5-15 Blood Urea Nitrogen 16 9-23 mg/dL Creatinine 0.73 0.550-1.02 mg/dL Glomerular Filtration Rate Calc 82 >90 mL/min BUN/Creatinine Ratio 21.9 H 10.0-20.0 Serum Glucose 136 H 74-106 mg/dL Calcium Level 9.4 8.7-10.4 mg/dL Total Bilirubin 0.5 0.2-1.0 mg/dL Aspartate Amino Transferase (AST) 46 H 13-40 U/L Alanine Aminotransferase (ALT) 62 H 7-40 U/L Alkaline Phosphatase 88 46-116 U/L Total Protein 7.6 5.7-8.2 g/dL Albumin 4.5 3.2-4.8 g/dL Lipase 63 H 12-53 U/L PATIENT: VLAD PENA ACCT: [id number] UNIT: [id number] : 1940 LOC: ER ROOM / BED: / AGE / SEX: 85 / F ADM STATUS: REG ER SERVICE [id number] ORDERING PHYSICIAN: BECK RODRIGUEZ MD PROCEDURE(s): ABPL - CT AB PEL WO CON-NO ORAL OR IV REASON: abdominal pain ORDER NUMBER(s): [id number], ACCESSION NUMBER(s): [id number] EXAM: CT CT AB PEL WO CON-NO ORAL OR IV INDICATION: abdominal pain TECHNIQUE: Volumetric multidetector CT images of the abdomen and pelvis were ob tained without contrast. All CT scans at this facility use dose modulation, iterative reconstruction, and/or weight based dosing when appropriate to reduce radiation dose to as low as reasonably achievable. COMPARISON: CT ABD PELVIS WO CONTRAST on DOS: 01/26/21 FINDINGS: [LOWER CHEST]: The partially visualized lung bases are clear without a pleural effusion. The cardiac size is normal without pericardial effusion. Coronary artery calcifications. [LIVER]: Normal hepatic size without suspicious focal lesion. [GALLBLADDER AND BILIARY TREE]: No cholelithiasis. [SPLEEN]: Unremarkable. [PANCREAS]: Unremarkable. [ADRENAL GLANDS]: Unremarkable [KIDNEYS]: Benign-appearing cysts of the left posterior inferior kidney. No hydronephrosis. No nephro-ureterolithiasis. No suspicious focal lesion. [BLADDER]: Unremarkable for the degree distention. [REPRODUCTIVE ORGANS]: Unremarkable. [BOWEL/MESENTERY]: Stomach is normal. Wdzs-sh-jwlelskq stool burden. Ascending colonic diverticulosis. Appendix is poorly visualized. Appearance of small bowel fecalization in the lower pelvis. No CT evidence of bowel obstruction. [ASCITES]: Absent [LYMPHADENOPATHY]: No pathologically enlarged lymph nodes by CT size criteria [VASCULATURE]: No aneurysmal dilatation. [ABDOMINAL WALL]: Gluteal subcutaneous adipose tissue calcifications. Unremarkable. [MUSCULOSKELETAL]: No acute fracture or aggressive focal osseous lesion. Apposing degenerative change at L4-5. Multifocal degenerative change of the visualized spine. IMPRESSION: 1. Xcrr-qi-ventthve stool burden. 2. Correlate for constipation. 3. Small bowel fecalization in the lower pelvis. 4. Correlate for slow small bowel transit versus malabsorption. ORDERING PHYSICIAN: BECK RODRIGUEZ MD PROCEDURE(s): CXRP - CHEST PORTABLE REASON: epigastric pain ORDER NUMBER(s): [id number], ACCESSION NUMBER(s): [id number] CLINICAL HISTORY: epigastric pain TECHNIQUE: Single view of the chest was obtained. COMPARISON: CXR2 on DOS: 12/15/21, CHEST TWO VIEWS ROUTINE on DOS: 12/15/21, CHEST TWO VIEWS ROUTINE on DOS: 06/04/21, CHEST TWO VIEWS ROUTINE on DOS: 04/10/21 FINDINGS: The heart size and pulmonary vasculature are normal. The lungs are clear. IMPRESSION: NO ACUTE CARDIOPULMONARY PROCESS. SEPSIS Sepsis Screen Date sepsis recognized/suspect: May 08, 2025 Time Sepsis recognized/suspect: 1042 Recent Procedure: No On Antibiotic Therapy: Yes Respiratory Rate >20: No Heart Rate >90: No Temp<36 C (96.8 F) or >38.3 C: No SBP <90 or MAP <65 mmHG: No New Acute Mental Status Change: No Is the patient on CPAP, BIPAP,: No Physician Orders Amlodipine Tablet (Norvasc Tablet) (05/09/25 10:00) Atorvastatin (Lipitor) (05/09/25 22:00) Pantoprazole (Protonix) (05/09/25 10:00) Allergies (05/08/25 22:15) Code Status (05/08/25 22:15) Sodium Chloride Lock (Saline Lock Ns) (05/09/25 06:00) Oxygen Per Hour (05/08/25 22:15) Hydrocodone-Acet 5/325mg Tab ([place] 5/32 (05/08/25 22:15) Ondansetron Hcl (Zofran) (05/08/25 22:15) Docusate Sodium Capsule (Colace Capsule) (05/08/25 22:15) Fall Risk Precautions In Place QSHIFT (05/08/25 22:15) Complete Blood Count (05/09/25 04:00) Comprehensive Metabolic Panel (05/09/25 04:00) Condition: Serious (05/08/25 22:15) Acetaminophen Tablet (Tylenol Tablet) (05/08/25 22:15) Clear Liq Diet (05/09/25 Breakfast) Maintain Bed Rest (05/08/25 22:15) Sequential Compression Device (05/08/25 ) Admit (05/08/25 23:49) Nitroglycerin Sublingual (Ntrostat Subli (05/09/25 00:00) Morphine Sulfate Injection (05/09/25 00:00) Notify Md Of Changes From Base (05/08/25 23:49) Emergency Dysrhythmia Protocol (05/08/25 23:49) Oxygen By Nasal Cannula (05/08/25 23:49) Vital Signs Date Time Temp Pulse Resp B/P (MAP) Pulse Ox O2 Delivery O2 Flow Rate FiO2 05/08/25 21:27 97.6 86 16 175/75 (108) 96 97.6 Laboratory Tests Test 05/08/25 12:20 White Blood Count 8.1 10^3/uL (4.4-10.8) Medications Medications Dose Ordered Sig/Marcus Route Start Time Stop Time Status Last Admin Dose Admin Al Hydrox/Mg Hydrox/Simethicone 15 ml ONCE ONCE PO 05/08/25 12:30 05/08/25 12:31 DC 05/08/25 17:47 15 ML Ondansetron HCl 4 mg ONCE ONCE PO 05/08/25 12:30 05/08/25 12:31 DC 05/08/25 17:47 4 MG Pantoprazole Sodium 40 mg ONCE ONCE IV 05/08/25 12:30 05/08/25 12:31 DC 05/08/25 17:47 40 MG Sodium Chloride 1,000 ml @ 1,000 mls/hr Q1H ONCE IV 05/08/25 12:30 05/08/25 13:29 DC 05/08/25 17:49 1,000 MLS/HR Assessment/Plan Assessment/Plan Intractable abdominal pain Constipation Hyperglycemia Elevated lipase Elevated liver enzymes Generalized weakness Plan 1. Admit to med surge unit 2. Breathing treatment 3. Pain control management 4. Management of fluids and electrolytes 5. Consultation for hospitalist 6. Diagnostic tests abdomen/pelvis CT 7. DVT prophylaxis-on SCDs 8. Repeat labs CBC, CMP in a.m. 9. Continue with current medical management 10. Treatment plan discussed with patient and RN. Patient verbalized understanding. Plan discussed with: Patient, Other (RN) My Orders Orders - JORJE URIAS DNP Procedure Category Date Status Time Amlodipine Tablet PHA 05/09/25 In Process (Norvasc Tablet) 10:00 Atorvastatin (Lipitor) PHA 05/09/25 In Process 22:00 Pantoprazole PHA 05/09/25 In Process (Protonix) 10:00 Allergies EWA 05/08/25 In Process 22:15 Code Status CODE 05/08/25 Transmitted 22:15 Sodium Chloride Lock PHA 05/09/25 In Process (Saline Lock Ns) 06:00 Oxygen Per Hour RT 05/08/25 Transmitted 22:15 Hydrocodone-Acet PHA 05/08/25 In Process 5/325mg Tab ([place]in[place] 22:15 Ondansetron Hcl PHA 05/08/25 In Process (Zofran) 22:15 Docusate Sodium PHA 05/08/25 In Process Capsule (Colace 22:15 Fall Risk Precautions EWA 05/08/[address] 22:15 Complete Blood Count LAB 05/09/25 Verified 04:00 Comprehensive LAB 05/09/25 Verified Metabolic Panel 04:00 Condition: Serious EWA 05/08/25 In Process 22:15 Acetaminophen Tablet PHA 05/08/25 In Process (Tylenol Tablet) 22:15 Clear Liq Diet DIET 05/09/25 Transmitted Breakfast Maintain Bed Rest EWA 05/08/25 In Process 22:15 Sequential EWA 05/08/25 In Process Compression Device Admit ADMIT 05/08/25 Verified 23:49 Nitroglycerin PHA 05/09/25 Verified Sublingual (Ntrostat 00:00 Morphine Sulfate PHA 05/09/25 Verified Injection 00:00 Notify Md Of Changes EWA 05/08/25 Verified From Base 23:49 Emergency Dysrhythmia EWA 05/08/25 Verified Protocol 23:49 Oxygen By Nasal RT 05/08/25 Verified Cannula 23:49 Problem List: (1) Intractable abdominal pain (2) Constipation (3) Elevated lipase (4) Hyperglycemia (5) Elevated liver enzymes (6) Generalized weakness Date of Service: May 08, 2025 Billing Provider: JORJE URIAS DNP Common Visit Codes: [id number] INP/OBS CARE (HIGH) JORJE URIAS DNP May 08, 2025 23:50
[2025-05-09] VITALS (19 sets, daily range): BP systolic 120–158; BP diastolic 71–93; PULSE 66–110; RESP 16–22; TEMP 97.7–97.9; O2SAT 93–100
[2025-05-09] MEDS ORDERED: NITROGLYCERIN 0.4 MG SL TAB SL PRN ×2
[2025-05-09] MEDS ORDERED: MORPHINE SULFATE INJ 2 MG/ml SYRG IV PRN ×2
[2025-05-09] MEDS: SODIUM CHLOR 0.9% PF (SALINE LOCK) 10ML VIAL/SYR IV SCH (06:51)
[2025-05-09] MEDS: ALBUTEROL SULF 2.5 MG/0.5ML(0.5%) NEB SOLN NEB PRN (07:46)
[2025-05-09] MEDS: IPRATROPIUM BROM 0.5 MG/2.5ML INH SOL NEB PRN (07:46)
[2025-05-09] MEDS ORDERED: EMPA1TAB PO (10:31)
[2025-05-09] MEDS ORDERED: LISI30TA8 PO (10:36)
[2025-05-09] MEDS: SODIUM CHLORIDE 0.9% 1,000 ML IV SCH (10:44)
[2025-05-09] MEDS: PANTOPRAZOLE 40 MG/10 ML VIAL INJ IV SCH ×2 (10:44→22:03)
[2025-05-09] MEDS ORDERED: DEXTROSE (50%) 50ML SYRG IV PRN (11:00)
[2025-05-09 11:32] LABS: INR 0.97 (0.9-1.15); Partial Thromboplastin Time 28.8 SEC (24.5-34.5); Prothrombin Time 10.3 sec (9.3-11.8)
[2025-05-09 11:46] LABS: Magnesium 2.2 mg/dL (1.6-2.6); Triglycerides 82.0 mg/dL (< 150)
[2025-05-09 11:47] LABS: Cholesterol 137.0 mg/dL (< 200)
[2025-05-09 11:48] LABS: HDL Cholesterol 62.0 mg/dL (40-59)
[2025-05-09 11:49] LABS: Lactic Acid w/Reflex 2.7 mmol/L (0.4-2.0)
[2025-05-09] MEDS: guaiFENesin-DM 100/10mg/5ml SYR PO ONE (12:07)
[2025-05-09] MEDS: SUCRALFATE 1 GM/10 ML ORAL SUSP PO ONE (12:07)
[2025-05-09] MEDS: methylPREDNISolone SOD SUCC 40 MG/ML VL IV ONE (12:08)
[2025-05-09] MEDS: ACCU-CHEK COMFORT CURVE STRIP VI SCH (12:17)
[2025-05-09] MEDS: InsuLIN REG 1unit/0.01ml Soln (100units/ml) SC SCH (12:17)
[2025-05-09 12:19] LABS: Lipase 74.0 U/L (12-53)
[2025-05-09] MEDS: AZITHROMYCIN 500MG/250ML 250 ML IV ONE (13:13)
[2025-05-09] MEDS: GASTROGRAFIN 120 ML SOL ONE (13:14)
--- NOTE | 2025-05-09 13:44 | DVHPNRES ---
Progress Note Date Seen: May 09, 2025 Resident Creating Document: LEEANN OLIVEIRA RESIDENT Medical Necessity Reason Pt with a Central, PICC or Fol: No Subjective Review of Systems Patient is a 85-year-old female with past medical history of GERD, High Lipids, HTN, T2DM, fatty liver, COPD and bronchitis, presented to [facility] ED with complaint of epigastric abdominal pain. She reports the pain started last Saturday and feels different from her usual GERD symptoms. The pain worsened this morning after eating breakfast and taking her morning medications. She recalls a recent episode of breathing difficulty and an ED visit where she was diagnosed with bronchitis and prescribed doxycycline. She took the antibiotic Saturday night without enough water and felt as though the pill was stuck in her esophagus. Yesterday morning, she ate spicy [place] vegetables along with her usual medications and experienced worsening epigastric pain, prompting her to come to the ED. She denies constipation, noting her last bowel movement was yesterday morning. She also denies nausea, vomiting, diarrhea, urinary symptoms, headache, dizziness, diaphoresis, fever, or chills. Past surgical history: Appendectomy, endoscopy (4 years ago), colonoscopy (5 years ago), bladder polyp removal (5 years ago) Social & Personal history: Smoking: > 20 years, 1 pack a day. Alcohol: occasionally. Drug: denies Home medications: Acetaminophen, amlodipine, atorvastatin Allergies: Penicillins Patient seen and examined at bedside. Patient is alert and oriented to time, place person and responding to all questions. Eyes: No Pain, No Vision change, No Conjunctivae inflammation, No Eyelid inflammation, No Other, No Redness ENT: No Ear pain, No Ear discharge, No Nose pain, No Nose discharge, No Nose congestion, No Mouth pain, No Mouth swelling, No Throat pain, No Throat swelling, No Other Cardiovascular: No Chest Pain, No Palpitations, No Orthopnea, No Paroxysmal No Dyspnea, No Edema, No Lt Headedness, No Other Respiratory: Cough, No Dry, Shortness of breath, No SOB with exertion, Wheezing, No Hemoptysis, No Pleuritic Pain, No Sputum, No Other Gastrointestinal: No Nausea, No Vomiting, Abdominal Pain, No Diarrhea, No Constipation, No Melena, No Hematochezia, No Other Genitourinary: No Dysuria, No Frequency, No Incontinence, No Hematuria, No Retention, No Other Musculoskeletal: No other, No neck pain, No shoulder pain, No arm pain, No back pain, No hand pain, No leg pain, No foot pain Skin: No Rash, No Lesions, No Jaundice, No Bruising, No Other Objective vital signs Vital Sign Date Time Temp Pulse Resp B/P (MAP) Pulse Ox O2 Delivery O2 Flow Rate FiO2 05/09/25 13:00 97.7 73 22 158/93 (114) 98 97.7 05/09/25 12:24 Room Air* 0 21 Total Intake and Output 05/08/25 05/08/25 05/09/25 15:00 23:00 07:00 Intake Total 0 ml Balance 0 ml medications Current Medications Medications Dose Ordered Sig/Marcus Route Start Time Stop Time Status Last Admin Dose Admin Amlodipine Besylate 5 mg DAILY PO 05/09/25 10:00 05/09/25 10:44 5 MG Atorvastatin Calcium 20 mg HS PO 05/09/25 22:00 Sodium Chloride 10 ml Q8HR IV 05/09/25 06:00 05/09/25 06:51 10 ML Ondansetron HCl 4 mg Q4HP PRN IV 05/08/25 22:15 Docusate Sodium 100 mg BIDPRN PRN PO 05/08/25 22:15 Acetaminophen 650 mg Q6HP PRN PO 05/08/25 22:15 Sodium Chloride 1,000 ml @ 75 mls/hr [id number] IV 05/09/25 08:30 05/09/25 10:44 75 MLS/HR Guaifenesin/ Dextromethorphan 10 ml Q4HP PRN PO 05/09/25 11:00 Empaglifozin 10 mg DAILY PO 05/10/25 10:00 Diagnostic Test (Pha) 1 strip ACHS 05/09/25 11:30 05/09/25 12:17 1 STRIP Insulin Human Regular ACHS SC 05/09/25 11:30 Dextrose 50 ml UD PRN IV 05/09/25 11:00 Lisinopril 15 mg BID PO 05/10/25 10:00 Azithromycin 250 ml @ 125 mls/hr DAILY IV 05/10/25 10:00 Methylprednisolone Sodium Succinate 40 mg BID IV 05/09/25 22:00 Pantoprazole Sodium 40 mg BID IV 05/09/25 22:00 Sucralfate 1 gm QID@0600,1130,1700,2200 PO 05/09/25 17:00 Albuterol 2.5 mg Q4HR NEB 05/09/25 14:00 Ipratropium [place] 0.5 mg Q4HR NEB 05/09/25 14:00 Examination General Appearance: Cooperative. Well developed. Well nourished. NAD Head Exam: Normal inspection Neck Exam: Normal inspection. Non-tender. Normal alignment Pulmonary/Respiratory: Chest non-tender. Clear bilateral breath sounds, no crackles, inspiratory expiratory wheezing. Cardiovascular/Chest: Regular rate and rhythm. No murmurs. No JVD. Peripheral Pulses: 2+ Radial (R). 2+ Radial (L). 2+ Pedal (R). 2+ Pedal (L) Abdominal Exam: Epigastric tenderness. Normal bowel sounds. Soft. normal abdomen, no visible veins, Nontender. No hepatospenomegaly. No masses Ankle Exam: Negative ankle edema Lower extremities: Negative lower extremity edema Neuro/Mental Status: A&O x4. Coherent. Thoughts/Psych: Normal thought pattern. Appropriate mood and affect. Good judgement and insight Skin Exam: Normal inspection. Normal color. Warm. Dry laboratory and microbiology Laboratory Tests 05/08/25 12:20 Test 05/08/25 12:20 Range/Units Serum Glucose 136 H 74-106 mg/dL Labs and/or images reviewed: Labs reviewed by me, Image(s) reviewed by me Problem List/Assessment/Plan Problem List/Assessment/Plan # Acute COPD exacerbation # History of bronchitis Chest X-ray: No acute cardiopulmonary process Echocardiogram pending Albuterol 2.5 MG NEB q4h Ipratropium 0.5 MG NEB q4h Azithromycin IV daily pain management with Tylenol Methylprednisolone 40 MG IV bid IV NS 75 MLS/HR Zofran 4 MG IV q4h Sodium chloride 10 ML IV q8h Influenza negative COVID-19 negative # GERD # Possible pill esophagitis versus gastritis # Slow small bowel transit vs malabsorption # Constipation # Rule out pancreatitis # Ruled out small bowel obstruction Small bowel X-ray: Lumber Sales Supervisor view of the abdomen demonstrates a nonspecific bowel gas pattern with a few gas-filled mildly distended small bowel loops and gas and moderate stool throughout the colon. Contrast passes through the stomach into the small bowel without delay. No visualized small bowel stricture or other small bowel abnormality on this exam. Contrast is identified within the colon by 30 minutes. This represents a normal small bowel transit time. No small bowel obstruction. Abdomen/Pelvis CT: Ihar-ut-xpzdwzci stool burden. Small bowel fecalization in the lower pelvis. Colace 100 MG PO bid prn Protonix 40 MG IV bid Sucralfate 1 GM PO qid # Transaminitis # Fatty liver monitor # Hypertension Amlodipine 5 MG PO daily Lisinopril 15 MG PO bid # Mixed dyslipidemia Atorvastatin 20 MG PO hs # Type 2 diabetes mellitus with hyperglycemia, uncontrolled D50 Mild Slinding Scale Accu-check Jardiance 10 MG PO daily Diet: mechanical soft PUD prophylaxis: Protonix 40mg Goals of care: Full code Plan discussed with patient Plan discussed with Dr. Gutierrez Plan discussed with: Patient, Other Visit Coding STANDARD RES Billing Provider: TESSIE GUTIERREZ MD Date of Service if different f: May 09, 2025 Common Visit Codes: [id number] INP/OBS CARE(HIGH) LEEANN OLIVEIRA RESIDENT May 09, 2025 13:44 CM TURPIN RESIDENT May 09, 2025 22:34
[2025-05-09] MEDS: IPRATROPIUM BROM 0.5 MG/2.5ML INH SOL NEB SCH (14:00)
[2025-05-09] MEDS: ALBUTEROL SULF 2.5 MG/0.5ML(0.5%) NEB SOLN NEB SCH (14:00)
--- NOTE | 2025-05-09 16:07 | DVH ---
Procedure: XY SMALL BOWEL SERIES-W GASTROGRA Reason for study/Clinical History: Rule out small-bowel obstruction. Comparison Study: CT ABD PELVIS WO CONTRAST on DOS: 01/26/21, KUB ABDOMEN SINGLE VIEW on DOS: 09/18/18 Technique: Single contrast small bowel series performed. 240 mL gastric view was administered. FINDINGS/IMPRESSION: Roll Cutting Operator view of the abdomen demonstrates a nonspecific bowel gas pattern with a few gas-filled mildly distended small bowel loops and gas and moderate stool throughout the colon. Contrast passes through the stomach into the small bowel without delay. No visualized small bowel stricture or other small bowel abnormality on this exam. Contrast is identified within the colon by 30 minutes. This represents a normal small bowel transit time. No small bowel obstruction.
[2025-05-09 16:59] LABS: COVID19 ANTIGEN SOFIA FIA NEGATIVE (NEGATIVE)
[2025-05-09] MEDS: SUCRALFATE 1 GM/10 ML ORAL SUSP PO SCH (18:18)
[2025-05-09] MEDS: methylPREDNISolone SOD SUCC 40 MG/ML VL IV SCH (22:03)
[2025-05-09] MEDS: ATORVASTATIN 20 MG TAB PO SCH (22:03)
[2025-05-09] MEDS: guaiFENesin-DM 100/10mg/5ml SYR PO PRN (23:07)
[2025-05-09 23:12] LABS: Hematocrit 46.4 % (36.0-46.0); Hemoglobin 15.0 g/dL (12.2-16.2); Mean Corpuscular Hemoglobin 29.8 pg (28.0-32.0); Mean Corpuscular Volume 92.4 fL (80.0-100.0); Nucleated Red Blood Cells % 0.1 %
[2025-05-09 23:37] LABS: Alkaline Phosphatase 77 U/L (46-116); Anion Gap 16 (5-15); BUN/Creatinine Ratio 12.3 (10.0-20.0); Blood Urea Nitrogen 14 mg/dL (9-23); Calcium 9.7 mg/dL (8.7-10.4); Carbon Dioxide 21 mmol/L (20-31); Lipase 43 U/L (12-53); Potassium 4.1 mmol/L (3.5-5.1); Total Protein 7.0 g/dL (5.7-8.2)
[2025-05-09 23:38] LABS: Albumin 4.3 g/dL (3.2-4.8); Bilirubin, Total 0.4 mg/dL (0.2-1.0)
[2025-05-09 23:39] LABS: Alanine Aminotransferase 59 U/L (7-40); Chloride 108 mmol/L (98-107); Glucose 210 mg/dL (74-106); Sodium 145 mmol/L (136-145)
[2025-05-10] VITALS (22 sets, daily range): BP systolic 114–149; BP diastolic 61–74; PULSE 94–112; RESP 16–22; TEMP 97.5–98.6; O2SAT 93–100
[2025-05-10 00:02] LABS: Lactic Acid w/Reflex 6.5 mmol/L (0.4-2.0)
[2025-05-10] MEDS: SODIUM CHLORIDE 0.9% 500 ML IV ONE (01:50)
[2025-05-10 06:29] LABS: Hematocrit 41.8 % (36.0-46.0); Hemoglobin 14.0 g/dL (12.2-16.2); Mean Corpuscular Hemoglobin 30.4 pg (28.0-32.0); Mean Corpuscular Volume 90.8 fL (80.0-100.0); Nucleated Red Blood Cells % 0.0 %
[2025-05-10 06:41] LABS: Albumin 4.1 g/dL (3.2-4.8); Alkaline Phosphatase 68 U/L (46-116); Anion Gap 12 (5-15); BUN/Creatinine Ratio 16.3 (10.0-20.0); Bilirubin, Total 0.4 mg/dL (0.2-1.0); Blood Urea Nitrogen 15 mg/dL (9-23); Calcium 9.6 mg/dL (8.7-10.4); Carbon Dioxide 22 mmol/L (20-31); Potassium 3.8 mmol/L (3.5-5.1); Sodium 144 mmol/L (136-145); Total Protein 6.6 g/dL (5.7-8.2)
[2025-05-10 06:57] LABS: Alanine Aminotransferase 52 U/L (7-40); Chloride 110 mmol/L (98-107); Glucose 157 mg/dL (74-106)
[2025-05-10 07:01] LABS: Lipase 33 U/L (12-53)
[2025-05-10 07:04] LABS: Lactic Acid w/Reflex 4.7 mmol/L (0.4-2.0)
--- NOTE | 2025-05-10 08:43 | DVHSR ---
APPROVED REPORT EXAM: Two-dimensional and M-mode echocardiogram with Doppler and color Doppler. Blood Pressure: 146/71 mmHg INDICATION Chest Pain RISK FACTORS Height: 5'4", Weight: 151 DIMENSIONS LVDd 4.0 (3.8-5.7cm) LA (2D) (1.9-4.0cm) Aortic Root 3.4 (2.0-3.7cm) LVDs 2.8 (2.5-4.0cm) LA (MM) (1.9-4.0cm) Aortic Cusp Exc 1.8 (1.5-2.0cm) EF (%) 60.0 (55-70%) Rt. Atrium (1.9-4.0cm) Asc. Aorta cm IVSd 0.8 (0.7-1.1cm) RV (D) (1.8-2.4cm) PWd 1.0 (0.7-1.1cm) Mitral Valve Mitral Mitral Stenosis E/A ratio 0.0 2D MVA cm2 Aortic Valve Aortic Valve Aortic Stenosis V1 0.88m/s AO Mean GR. 3mmHg V2 1.26m/s AO Peak GR. 6mmHg LVOT Diameter 2.0 (1.8-2.4cm) Doppler NATE 2.19cm2 Other Information Quality : Limited Rhythm : Technically limited study due to body habitus. Conclusion lvef 60% mild LVH normal rv function left atrium enlarged no severe valve abnormalities noted trivial pericardial effusion noted
[2025-05-10] MEDS: AZITHROMYCIN 500MG/250ML 250 ML IV SCH (09:10)
[2025-05-10] MEDS: LISINOPRIL 5 MG TAB PO SCH (09:11)
[2025-05-10] MEDS: EMPAGLIFLOZIN 10 MG TAB PO SCH (09:12)
--- NOTE | 2025-05-10 10:58 | DVH ---
INDICATION: Transaminitis, pancreatitis TECHNIQUE: Multiple real-time sonographic images of the abdomen were obtained. COMPARISON: IBRAHIMA on DOS: 10/20/21 FINDINGS: The liver is heterogeneous in echogenicity. The liver measures 14cm. No intrahepatic biliary ductal dilatation is noted. The gallbladder wall measures 0.1 cm and is unremarkable. No gallstones or sludge is seen. The common duct measures 0.5 cm and is unremarkable. No pericholecystic fluid is noted. The right kidney measures 12cm. No hydronephrosis. The pancreas is not well visualized due to obscuration from bowel gas. The visualized portions of the IVC and aorta are grossly unremarkable. IMPRESSION: HEPATIC STEATOSIS.
--- NOTE | 2025-05-10 14:06 | DVHPNRES ---
Progress Note Date Seen: May 10, 2025 Resident Creating Document: LEEANN OLIVEIRA RESIDENT Medical Necessity Reason Pt with a Central, PICC or Fol: No Subjective Review of Systems Patient is a 85-year-old female with past medical history of GERD, High Lipids, HTN, T2DM, fatty liver, COPD and bronchitis, presented to [facility] ED with complaint of epigastric abdominal pain. She reports the pain started last Saturday and feels different from her usual GERD symptoms. The pain worsened this morning after eating breakfast and taking her morning medications. She recalls a recent episode of breathing difficulty and an ED visit where she was diagnosed with bronchitis and prescribed doxycycline. She took the antibiotic Saturday night without enough water and felt as though the pill was stuck in her esophagus. Yesterday morning, she ate spicy [place] vegetables along with her usual medications and experienced worsening epigastric pain, prompting her to come to the ED. She denies constipation, noting her last bowel movement was yesterday morning. She also denies nausea, vomiting, diarrhea, urinary symptoms, headache, dizziness, diaphoresis, fever, or chills. On 05/10/25, The patient reports improved breathing after treatments and denies new complaints. Vital signs are stable. Breath sounds have improved, and the patient is in no acute distress. The plan is to continue breathing treatments as ordered and monitor respiratory status. Discharge is anticipated tomorrow if the patient remains stable. Past surgical history: Appendectomy, endoscopy (4 years ago), colonoscopy (5 years ago), bladder polyp removal (5 years ago) Social & Personal history: Smoking: > 20 years, 1 pack a day. Alcohol: occasionally. Drug: denies Home medications: Acetaminophen, amlodipine, atorvastatin Allergies: Penicillins Patient seen and examined at bedside. Patient is alert and oriented to time, place person and responding to all questions. Eyes: No Pain, No Vision change, No Conjunctivae inflammation, No Eyelid inflammation, No Other, No Redness ENT: No Ear pain, No Ear discharge, No Nose pain, No Nose discharge, No Nose congestion, No Mouth pain, No Mouth swelling, No Throat pain, No Throat swelling, No Other Cardiovascular: No Chest Pain, No Palpitations, No Orthopnea, No Paroxysmal No Dyspnea, No Edema, No Lt Headedness, No Other Respiratory: Cough, No Dry, Shortness of breath, No SOB with exertion, Wheezing, No Hemoptysis, No Pleuritic Pain, No Sputum, No Other Gastrointestinal: No Nausea, No Vomiting, Abdominal Pain, No Diarrhea, No Constipation, No Melena, No Hematochezia, No Other Genitourinary: No Dysuria, No Frequency, No Incontinence, No Hematuria, No Retention, No Other Musculoskeletal: No other, No neck pain, No shoulder pain, No arm pain, No back pain, No hand pain, No leg pain, No foot pain Skin: No Rash, No Lesions, No Jaundice, No Bruising, No Other Objective vital signs Vital Sign Date Time Temp Pulse Resp B/P (MAP) Pulse Ox O2 Delivery O2 Flow Rate FiO2 05/10/25 13:45 112 18 100 05/10/25 13:43 Room Air* 0 21 05/10/25 13:12 97.8 116/69 (85) 97.8 Total Intake and Output 05/09/25 05/09/25 05/10/25 15:00 23:00 07:00 Intake Total 800 ml 540 ml Output Total 1 ml Balance 800 ml 539 ml medications Current Medications Medications Dose Ordered Sig/Marcus Route Start Time Stop Time Status Last Admin Dose Admin Amlodipine Besylate 5 mg DAILY PO 05/09/25 10:00 05/10/25 09:14 5 MG Atorvastatin Calcium 20 mg HS PO 05/09/25 22:00 05/09/25 22:03 20 MG Sodium Chloride 10 ml Q8HR IV 05/09/25 06:00 05/10/25 06:27 10 ML Ondansetron HCl 4 mg Q4HP PRN IV 05/08/25 22:15 Docusate Sodium 100 mg BIDPRN PRN PO 05/08/25 22:15 Acetaminophen 650 mg Q6HP PRN PO 05/08/25 22:15 Sodium Chloride 1,000 ml @ 75 mls/hr [id number] IV 05/09/25 08:30 05/09/25 22:04 75 MLS/HR Guaifenesin/ Dextromethorphan 10 ml Q4HP PRN PO 05/09/25 11:00 05/10/25 12:06 10 ML Empaglifozin 10 mg DAILY PO 05/10/25 10:00 05/10/25 09:12 10 MG Diagnostic Test (Pha) 1 strip ACHS 05/09/25 11:30 05/10/25 11:13 1 STRIP Insulin Human Regular ACHS SC 05/09/25 11:30 05/10/25 11:15 4 UNITS Dextrose 50 ml UD PRN IV 05/09/25 11:00 Lisinopril 15 mg BID PO 05/10/25 10:00 05/10/25 09:11 15 MG Azithromycin 250 ml @ 125 mls/hr DAILY IV 05/10/25 10:00 05/10/25 09:10 125 MLS/HR Methylprednisolone Sodium Succinate 40 mg BID IV 05/09/25 22:00 05/10/25 09:11 40 MG Pantoprazole Sodium 40 mg BID IV 05/09/25 22:00 05/10/25 09:10 40 MG Sucralfate 1 gm QID@0600,1130,1700,2200 PO 05/09/25 17:00 05/10/25 11:13 1 GM Albuterol 2.5 mg Q4HR NEB 05/09/25 14:00 05/10/25 13:39 2.5 MG Ipratropium [place] 0.5 mg Q4HR NEB 05/09/25 14:00 05/10/25 13:39 0.5 MG Examination General Appearance: Cooperative. Well developed. Well nourished. NAD Head Exam: Normal inspection Neck Exam: Normal inspection. Non-tender. Normal alignment Pulmonary/Respiratory: Chest non-tender. Clear bilateral breath sounds, no crackles, inspiratory expiratory wheezing. Cardiovascular/Chest: Regular rate and rhythm. No murmurs. No JVD. Peripheral Pulses: 2+ Radial (R). 2+ Radial (L). 2+ Pedal (R). 2+ Pedal (L) Abdominal Exam: Epigastric tenderness. Normal bowel sounds. Soft. normal abdomen, no visible veins, Nontender. No hepatospenomegaly. No masses Ankle Exam: Negative ankle edema Lower extremities: Negative lower extremity edema Neuro/Mental Status: A&O x4. Coherent. Thoughts/Psych: Normal thought pattern. Appropriate mood and affect. Good judgement and insight Skin Exam: Normal inspection. Normal color. Warm. Dry laboratory and microbiology Laboratory Tests 05/10/25 05:43 Test 05/10/25 05:43 Range/Units Serum Glucose 157 H 74-106 mg/dL Labs and/or images reviewed: Labs reviewed by me, Image(s) reviewed by me Problem List/Assessment/Plan Problem List/Assessment/Plan # Acute COPD exacerbation # History of bronchitis Chest X-ray: No acute cardiopulmonary process Echocardiogram pending Albuterol 2.5 MG NEB q4h Ipratropium 0.5 MG NEB q4h Azithromycin IV daily pain management with Tylenol Methylprednisolone 40 MG IV bid IV NS 75 MLS/HR Zofran 4 MG IV q4h Sodium chloride 10 ML IV q8h Influenza negative COVID-19 negative # GERD # Possible pill esophagitis versus gastritis # Slow small bowel transit vs malabsorption # Constipation # Ruled out pancreatitis # Ruled out small bowel obstruction Small bowel X-ray: Printed [employer] Panels Deburrer view of the abdomen demonstrates a nonspecific bowel gas pattern with a few gas-filled mildly distended small bowel loops and gas and moderate stool throughout the colon. Contrast passes through the stomach into the small bowel without delay. No visualized small bowel stricture or other small bowel abnormality on this exam. Contrast is identified within the colon by 30 minutes. This represents a normal small bowel transit time. No small bowel obstruction. Abdomen/Pelvis CT: [id number] stool burden. Small bowel fecalization in the lower pelvis. Colace 100 MG PO bid prn Protonix 40 MG IV bid Sucralfate 1 GM PO qid GI consult Cardiology consult # Transaminitis # Fatty liver monitor # Hypertension Amlodipine 5 MG PO daily Lisinopril 15 MG PO bid # Mixed dyslipidemia Atorvastatin 20 MG PO hs # Type 2 diabetes mellitus with hyperglycemia, uncontrolled D50 Mild Slinding Scale Accu-check Jardiance 10 MG PO daily Diet: Full liquid PUD prophylaxis: Protonix 40mg Goals of care: Full code Plan discussed with patient Plan discussed with Dr. Pelayo Plan discussed with: Patient, Other (RN) My Orders My Orders Orders - LEEANN OLIVEIRA Procedure Category Date Status Time * Cardiology Consult CONS 05/10/25 Transmitted 10:08 *[facility] CONS 05/10/25 Transmitted 13:58 Complete Blood Count LAB 05/11/25 Verified 04:00 Comprehensive LAB 05/11/25 Verified Metabolic Panel 04:00 Visit Coding STANDARD RES Billing Provider: BREA PELAYO MD Date of Service if different f: May 10, 2025 Common Visit Codes: [id number] INP/OBS CARE(HIGH) LEEANN OLIVEIRA May 10, 2025 14:06
--- NOTE | 2025-05-10 16:22 | DVHINCON2 ---
Date of service: May 10, 2025 History of Present Illness Patient is a 85-year-old female with past medical history of GERD, High Lipids, HTN, T2DM, fatty liver, COPD and bronchitis, presented to [facility] ED with complaint of epigastric abdominal pain. She reports the pain started last Saturday and feels different from her usual GERD symptoms. The pain worsened this morning after eating breakfast and taking her morning medications. She recalls a recent episode of breathing difficulty and an ED visit where she was diagnosed with bronchitis and prescribed doxycycline. She took the antibiotic Saturday night without enough water and felt as though the pill was stuck in her esophagus. Yesterday morning, she ate spicy [place] vegetables along with her usual medications and experienced worsening epigastric pain, prompting her to come to the ED. She denies constipation, noting her last bowel movement was yesterday morning. She also denies nausea, vomiting, diarrhea, urinary symptoms, headache, dizziness, diaphoresis, fever, or chills. 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 11/11/23 Reported Medications Lisinopril (Lisinopril) 30 Mg Tab, 15 MG PO BID, TAB 5 Refills 05/09/25 Empagliflozin (Jardiance) 10 Mg Tab, 10 MG PO DAILY, TAB 05/09/25 Omeprazole Magnesium (Omeprazole) 20 Mg Tab, 20 MG PO, TAB 04/10/21 Amlodipine Besylate (Amlodipine Besylate) 5 Mg Tab, 5 MG PO DAILY, TAB 04/10/21 Atorvastatin Calcium (Lipitor) 20 Mg Tab, 20 MG PO DAILY, TAB 04/10/21 Current Medications Current Medications Medications (Trade) Dose Ordered Sig/Marcus Route PRN Reason Start Time Stop Time Status Last Admin Atorvastatin Calcium (Lipitor) 20 mg HS PO 05/09/25 22:00 05/09/25 22:03 Empaglifozin (Jardiance) 10 mg DAILY PO 05/10/25 10:00 05/10/25 09:12 Lisinopril (Zestril Tablet) 15 mg BID PO 05/10/25 10:00 05/10/25 09:11 Azithromycin 250 ml @ 125 mls/hr DAILY IV 05/10/25 10:00 05/10/25 09:10 Methylprednisolone Sodium Succinate (Solu Medrol) 40 mg BID IV 05/09/25 22:00 05/10/25 09:11 Pantoprazole Sodium (Protonix) 40 mg BID IV 05/09/25 22:00 05/10/25 09:10 Sucralfate (Carafate Susp) 1 gm QID@0600,1130,1700,2200 PO 05/09/25 17:00 05/10/25 11:13 Review of Systems 10 pt ros otherwise negative Vital Signs Vital Signs Date Time Temp Pulse Resp B/P (MAP) Pulse Ox O2 Delivery O2 Flow Rate FiO2 05/10/25 13:45 112 18 100 05/10/25 13:43 Room Air* 0 21 05/10/25 13:12 97.8 116/69 (85) 97.8 Physical Exam nad s1 s2 rrr ctab soft nt/nd no edema Labs/Diagnostic Data Labs Test 05/10/25 11:02 05/10/25 08:40 05/10/25 05:43 05/09/25 14:00 Range/Units POC Glucose 226 H 70-106 mg/dl Lactic Acid Level 4.7 *H 0.4-2.0 mmol/L White Blood Count 10.8 4.4-10.8 10^3/uL Red Blood Count 4.61 4.0-5.20 10^6/uL Hemoglobin 14.0 12.2-16.2 g/dL Hematocrit 41.8 36.0-46.0 % Mean Corpuscular Volume 90.8 80.0-100.0 fL Mean Corpuscular Hemoglobin 30.4 28.0-32.0 pg Mean Corpuscular Hemoglobin Concent 33.5 32.0-36.0 g/dL Red Cell Distribution Width 14.5 H 11.8-14.3 % Platelet Count 206 140-450 10^3/uL Mean Platelet Volume 8.6 6.9-10.8 fL Neutrophils (%) (Auto) 88.1 H 37.0-80.0 % Lymphocytes (%) (Auto) 10.2 10.0-50.0 % Monocytes (%) (Auto) 1.6 0.0-12.0 % Eosinophils (%) (Auto) 0.0 0.0-7.0 % Basophils (%) (Auto) 0.1 0.0-2.0 % Neutrophils # (Auto) 9.6 H 1.6-8.6 10 ^3/uL Lymphocytes # (Auto) 1.1 0.4-5.4 10 ^3/uL Monocytes # (Auto) 0.2 0-1.3 10 ^3/uL Eosinophils # (Auto) 0 0-0.8 10 ^3/uL Basophils # (Auto) 0 0-0.2 10 ^3/uL Nucleated Red Blood Cells 0.0 % Sodium Level 144 136-145 mmol/L Potassium Level 3.8 3.5-5.1 mmol/L Chloride Level 110 H 98-107 mmol/L Carbon Dioxide Level 22 20-31 mmol/L Anion Gap 12 5-15 Blood Urea Nitrogen 15 9-23 mg/dL Creatinine 0.92 0.550-1.02 mg/dL Glomerular Filtration Rate Calc 62 >90 mL/min BUN/Creatinine Ratio 16.3 10.0-20.0 Serum Glucose 157 H 74-106 mg/dL Calcium Level 9.6 8.7-10.4 mg/dL Total Bilirubin 0.4 0.2-1.0 mg/dL Aspartate Amino Transferase (AST) 29 13-40 U/L Alanine Aminotransferase (ALT) 52 H 7-40 U/L Alkaline Phosphatase 68 46-116 U/L Total Protein 6.6 5.7-8.2 g/dL Albumin 4.1 3.2-4.8 g/dL Lipase 33 12-53 U/L Influenza Type A Antigen Negative Negative Influenza Type B Antigen Negative Negative SARS-CoV-2 Antigen (Rapid) Negative NEGATIVE Test 05/09/25 10:24 Range/Units Prothrombin Time 10.3 9.3-11.8 sec Prothrombin Time INR 0.97 0.9-1.15 Activated Partial Thromboplast Time 28.8 24.5-34.5 SEC Hemoglobin A1c 6.3 H <5.7 % A1C Phosphorus Level 2.5 2.4-5.1 mg/dL Magnesium Level 2.2 1.6-2.6 mg/dL Triglycerides Level 82 < 150 mg/dL Cholesterol Level 137 < 200 mg/dL LDL Cholesterol 66 < 100 mg/dL HDL Cholesterol 62 H 40-59 mg/dL Vitamin B12 Level 703 211-911 pg/mL Vitamin D 25-Hydroxy 40.0 30.0-100 ng/mL Thyroid Stimulating Hormone (TSH) 1.07 0.55-4.78 uIU/mL Assessment abd pain elevated lactate htn hl Plan/Recommendation IVF as needed echo shows normal lvef outpt cv testing scheduled with my office cont current tx constipation tx Plan discussed with: Patient KWASI HILL MD May 10, 2025 16:22
[2025-05-11] VITALS (17 sets, daily range): BP systolic 115–148; BP diastolic 59–76; PULSE 86–101; RESP 17–97; TEMP 97.3–98.3; O2SAT 93–99
[2025-05-11 01:36] LABS: Urine Protein, UAD Negative (Negative)
[2025-05-11 02:14] LABS: Amphetamine Screen, Urine Neg (NEGATIVE); Barbiturate Scree,Urine Neg (NEGATIVE); Benzodiazephine Screen, Urine Neg (NEGATIVE); Cannabinoid Screen, Urine Neg (NEGATIVE); Cocaine Screen, Urine Neg (NEGATIVE); Phencyclidine Screen, Urine Neg (NEGATIVE)
[2025-05-11 03:44] LABS: Opiate Scree,Urine Neg (NEGATIVE)
[2025-05-11 07:23] LABS: Hematocrit 43.3 % (36.0-46.0); Hemoglobin 14.2 g/dL (12.2-16.2); Mean Corpuscular Hemoglobin 29.9 pg (28.0-32.0); Mean Corpuscular Volume 90.8 fL (80.0-100.0); Nucleated Red Blood Cells % 0.1 %
[2025-05-11 07:36] LABS: Albumin 4.3 g/dL (3.2-4.8); Alkaline Phosphatase 68 U/L (46-116); Anion Gap 14 (5-15); BUN/Creatinine Ratio 31.2 (10.0-20.0); Carbon Dioxide 25 mmol/L (20-31); Chloride 104 mmol/L (98-107); Potassium 4.2 mmol/L (3.5-5.1); Sodium 143 mmol/L (136-145); Total Protein 7.0 g/dL (5.7-8.2)
[2025-05-11 07:37] LABS: Alanine Aminotransferase 43 U/L (7-40); Bilirubin, Total 0.6 mg/dL (0.2-1.0); Blood Urea Nitrogen 24 mg/dL (9-23); Calcium 10.8 mg/dL (8.7-10.4); Glucose 150 mg/dL (74-106)
[2025-05-11 09:14] LABS: Lactic Acid w/Reflex 3.4 mmol/L (0.4-2.0)
[2025-05-11] MEDS: SODIUM CHLORIDE 0.9% 500 ML IV ONE ×2 (09:45→17:08)
[2025-05-11] MEDS ORDERED: VANCOMYCIN PER PHARMACY 0 MG IV SCH (09:45)
--- NOTE | 2025-05-11 10:28 | ECG ---
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
--- NOTE | 2025-05-11 12:11 | DVH ---
CHEST RADIOGRAPH INDICATION: PNA TECHNIQUE: Single frontal view of the chest was obtained COMPARISON: XY CHEST PORTABLE on DOS: 05/08/25, CXR2 on DOS: 12/15/21, CHEST TWO VIEWS ROUTINE on DOS: 12/15/21, CHEST TWO VIEWS ROUTINE on DOS: 06/04/21, CHEST TWO VIEWS ROUTINE on DOS: 04/10/21 FINDINGS: Lines and Tubes: None Lungs: No focal consolidation. Pleura: No effusion. No pneumothorax. Cardiomediastinal contours: Unremarkable Bones: No acute osseous abnormality. IMPRESSION: No acute cardiopulmonary disease.
[2025-05-11] MEDS: VANCOMYCIN 1GM/250ML KIT 250 ML IV ONE (12:17)
[2025-05-11 13:30] LABS: Base Excess -3.9 mmol/L (-2.0-3.0)
--- NOTE | 2025-05-11 13:40 | DVHINCON2 ---
GI Consult Consult Note GI consult note Date of Consultation: 05/11/2025 Chief Complaint: Possible esophagitis Referring Physician: Dr. Aguilar H&P: 85-year-old female admitted with complains of lower esophageal/epigastric pain for one day. No nausea or vomiting denies hematemesis. Patient admits to improving pain at this time. Patient was prescribed antibiotics about a week ago complaining of cough and upper respiratory symptoms. And took this medication without enough water with the pill felt like it was stuck in her esophagus and caused her to experience pain with swallowing for few days. No difficulty swallowing at this time patient denies any pain with swallowing. Last endoscopy /colonoscopy 10 years ago. Within normal limits per patient. Patient has history of GERD symptoms but has been feeling better with this for the past 20 years Patient admits to having bowel movement every day. No history of constipation. No melena or red blood in stool Past Medical History: GERD, high lipids, HTN Past Surgical History: Denies Social History: NO smoking, drinking ETOH and use of illegal drugs. Family History: Noncontributory Review of Systems: Constitutional: no fever, chill, weight loss HEENT: no eye pain, no hearing loss, no oral lesion, no scleral icterus Heart: no chest pain, no chest pressure Lung: no cough, no dyspnea with exertion Abdomen: see HPI Physical exam: General: NAD, AAOX3 Chest: lung dang clear to auscultation Heart: RRR, no murmur Abdomen: non-distended, no tenderness to palpation, +BS Labs: Labs Test 05/11/25 11:34 05/11/25 09:49 05/11/25 08:22 05/11/25 06:14 Range/Units POC Glucose 155 H 70-106 mg/dl Blood Gas Specimen Type Arterial Blood Gas Sample Site Left radial Blood Gas Patient Temperature 37.0 Arterial Blood Date Drawn [id number] Arterial Blood pH 7.408 7.350-7.450 Arterial Blood Partial Pressure CO2 31.7 L 32.0-45.0 mmHg Arterial Blood Partial Pressure O2 71.4 L 83.0-108.0 mmHg Arterial Blood HCO3 19.6 L 21.0-28.0 mmol/L Arterial Blood Oxygen Saturation 93.1 L 94.0-98.0 % Arterial Blood Base Excess -3.9 L -2.0-3.0 mmol/L Arterial Blood Oxyhemoglobin 92.3 L 94.0-98.0 % Arterial Blood Carboxyhemoglobin 0.5 0.5-1.5 % Arterial Blood Methemoglobin 0.4 0.0-1.5 % Arterial Blood Deoxyhemoglobin 6.8 H 0.0-5.0 % Errol Test Positive Blood Gas Total Hemoglobin 15.50 12.0-16.0 g/dL Blood Gas Liter Flow 2.00 Blood Gas Modality Nasal cannula FiO2 % 21.0 Lactic Acid Level 3.4 *H 0.4-2.0 mmol/L White Blood Count 17.0 #H 4.4-10.8 10^3/uL Red Blood Count 4.77 4.0-5.20 10^6/uL Hemoglobin 14.2 12.2-16.2 g/dL Hematocrit 43.3 36.0-46.0 % Mean Corpuscular Volume 90.8 80.0-100.0 fL Mean Corpuscular Hemoglobin 29.9 28.0-32.0 pg Mean Corpuscular Hemoglobin Concent 32.9 32.0-36.0 g/dL Red Cell Distribution Width 14.3 11.8-14.3 % Platelet Count 233 140-450 10^3/uL Mean Platelet Volume 8.5 6.9-10.8 fL Neutrophils (%) (Auto) 88.3 H 37.0-80.0 % Lymphocytes (%) (Auto) 8.5 L 10.0-50.0 % Monocytes (%) (Auto) 3.1 0.0-12.0 % Eosinophils (%) (Auto) 0.0 0.0-7.0 % Basophils (%) (Auto) 0.1 0.0-2.0 % Neutrophils # (Auto) 15.0 H 1.6-8.6 10 ^3/uL Lymphocytes # (Auto) 1.5 0.4-5.4 10 ^3/uL Monocytes # (Auto) 0.5 0-1.3 10 ^3/uL Eosinophils # (Auto) 0 0-0.8 10 ^3/uL Basophils # (Auto) 0 0-0.2 10 ^3/uL Nucleated Red Blood Cells 0.1 % Sodium Level 143 136-145 mmol/L Potassium Level 4.2 3.5-5.1 mmol/L Chloride Level 104 98-107 mmol/L Carbon Dioxide Level 25 20-31 mmol/L Anion Gap 14 5-15 Blood Urea Nitrogen 24 H 9-23 mg/dL Creatinine 0.77 0.550-1.02 mg/dL Glomerular Filtration Rate Calc 76 >90 mL/min BUN/Creatinine Ratio 31.2 H 10.0-20.0 Serum Glucose 150 H 74-106 mg/dL Calcium Level 10.8 H 8.7-10.4 mg/dL Total Bilirubin 0.6 0.2-1.0 mg/dL Aspartate Amino Transferase (AST) 25 13-40 U/L Alanine Aminotransferase (ALT) 43 H 7-40 U/L Alkaline Phosphatase 68 46-116 U/L Total Protein 7.0 5.7-8.2 g/dL Albumin 4.3 3.2-4.8 g/dL Test 05/10/25 05:43 05/09/25 23:45 05/09/25 14:00 05/09/25 10:24 Range/Units Lipase 33 12-53 U/L Urine Color Colorless Yellow Urine Clarity Clear Clear Urine pH 6.5 5.0-9.0 Urine Specific [place] 1.012 1.001-1.035 Urine Protein Negative Negative Urine Ketones Negative Negative Urine Blood Negative Negative /uL Urine Nitrite Negative Negative Urine Bilirubin Negative Negative Urine Urobilinogen Normal Negative mg/dL Urine Leukocyte Esterase 1+ Negative /uL Urine RBC None seen 0 - 4 /hpf Urine Microscopic WBC 12 H 0-5 /HPF Urine Squamous Epithelial Cells None seen <5 /hpf Urine Bacteria None seen None Seen /hpf Urine Glucose 4+ H Normal mg/dL Urine Opiates Screen Neg NEGATIVE Urine Fentanyl Screen Neg NEGATIVE Urine Barbiturates Screen Neg NEGATIVE Urine Phencyclidine Screen Neg NEGATIVE Urine Amphetamines Screen Neg NEGATIVE Urine Benzodiazepines Screen Neg NEGATIVE Urine Cocaine Screen Neg NEGATIVE Urine Cannabinoids Screen Neg NEGATIVE Influenza Type A Antigen Negative Negative Influenza Type B Antigen Negative Negative SARS-CoV-2 Antigen (Rapid) Negative NEGATIVE Prothrombin Time 10.3 9.3-11.8 sec Prothrombin Time INR 0.97 0.9-1.15 Activated Partial Thromboplast Time 28.8 24.5-34.5 SEC Hemoglobin A1c 6.3 H <5.7 % A1C Phosphorus Level 2.5 2.4-5.1 mg/dL Magnesium Level 2.2 1.6-2.6 mg/dL Triglycerides Level 82 < 150 mg/dL Cholesterol Level 137 < 200 mg/dL LDL Cholesterol 66 < 100 mg/dL HDL Cholesterol 62 H 40-59 mg/dL Vitamin B12 Level 703 211-911 pg/mL Vitamin D 25-Hydroxy 40.0 30.0-100 ng/mL Thyroid Stimulating Hormone (TSH) 1.07 0.55-4.78 uIU/mL Imaging: CT abdomen pelvis IMPRESSION: 1. [id number] stool burden. 2. Correlate for constipation. 3. Small bowel fecalization in the lower pelvis. 4. Correlate for slow small bowel transit versus malabsorption. Small-bowel follow-through FINDINGS/IMPRESSION: Stretching Machine Operator view of the abdomen demonstrates a nonspecific bowel gas pattern with a few gas-filled mildly distended small bowel loops and gas and moderate stool throughout the colon. Contrast passes through the stomach into the small bowel without delay. No visualized small bowel stricture or other small bowel abnormality on this exam. Contrast is identified within the colon by 30 minutes. This represents a normal small bowel transit time. No small bowel obstruction. Liver ultrasound Hepatic steatosis Assessment: Abdominal pain improving Possible esophagitis/gastritis History of GERD Constipation Hepatic steatosis Plan: Discussed with Dr. Santillan Possible EGD discussed with patient including risks and benefits of procedure and sedation. At this time since patient is feeling better she does not want to have this procedure done and has an outpatient appointment with gastro group on 06/21/2025 and would like to be seen by them Protonix and Zofran as needed Advance diet as tolerated Repeat GI services if any changes Thank you for this consult Date of Service: May 11, 2025 Billing Provider: NORRIS NAJERA Common Visit Codes: CONSULT ONLY Consultation Codes: [id number] CONSULT <60MIN NORRIS NAJERA May 11, 2025 13:40
[2025-05-11 14:26] LABS: Lactic Acid w/Reflex 3.5 mmol/L (0.4-2.0)
--- NOTE | 2025-05-11 14:51 | DVHPNRES ---
Progress Note Date Seen: May 11, 2025 Resident Creating Document: CM TURPIN RESIDENT Medical Necessity Reason Pt with a Central, PICC or Fol: No Subjective Review of Systems Tristin Bond is a 85-year-old female who presents to the ED with complaint of burning epigastric abdominal pain which radiates towards retrosternal. Patient reports the pain started last 4 days before her admission, triggered after initiating p.o. antibiotic (doxycycline) due to recently diagnosed bronchitis in urgent care. Patient also believes that spicy food worsened her symptoms. Denies any other associated symptoms including constipation, hematemesis, hematochezia, melena and unintentional weight loss. Past medical history: GERD, High Lipids, HTN, T2DM, fatty liver, COPD with no home oxygen requirement Surgical history: Appendectomy, colonoscopy 10 years ago, bladder polyp removal (5 years ago) Family history: Noncontributory Social history: Patient lives alone in [place] (has no next of kin), became a recently. Tobacco abuse (approximately 30 pack-year history of smoking). Denies current alcohol and other drug abuse. Allergies: Penicillins Home medications: Acetaminophen, amlodipine, atorvastatin Patient seen and examined at bedside. Currently feels better than when she was admitted. Patient is breathing in room air Objective vital signs Vital Sign Date Time Temp Pulse Resp B/P (MAP) Pulse Ox O2 Delivery O2 Flow Rate FiO2 05/11/25 13:55 91 18 97 05/11/25 13:50 Room Air 05/11/25 13:50 0 21 05/11/25 12:55 97.3 148/76 (100) 97.3 Total Intake and Output 05/10/25 05/10/25 05/11/25 15:00 23:00 07:00 Intake Total 250 ml 725 ml 140 ml Balance 250 ml 725 ml 140 ml medications Current Medications Medications Dose Ordered Sig/Marcus Route Start Time Stop Time Status Last Admin Dose Admin Amlodipine Besylate 5 mg DAILY PO 05/09/25 10:00 05/11/25 09:38 5 MG Atorvastatin Calcium 20 mg HS PO 05/09/25 22:00 05/10/25 21:48 20 MG Sodium Chloride 10 ml Q8HR IV 05/09/25 06:00 05/11/25 05:36 10 ML Ondansetron HCl 4 mg Q4HP PRN IV 05/08/25 22:15 Docusate Sodium 100 mg BIDPRN PRN PO 05/08/25 22:15 Acetaminophen 650 mg Q6HP PRN PO 05/08/25 22:15 Sodium Chloride 1,000 ml @ 75 mls/hr [id number] IV 05/09/25 08:30 05/09/25 22:04 75 MLS/HR Guaifenesin/ Dextromethorphan 10 ml Q4HP PRN PO 05/09/25 11:00 05/10/25 18:57 10 ML Empaglifozin 10 mg DAILY PO 05/10/25 10:00 05/11/25 09:37 10 MG Diagnostic Test (Pha) 1 strip ACHS 05/09/25 11:30 05/11/25 11:30 1 STRIP Insulin Human Regular ACHS SC 05/09/25 11:30 05/11/25 11:30 2 UNITS Dextrose 50 ml UD PRN IV 05/09/25 11:00 Lisinopril 15 mg BID PO 05/10/25 10:00 05/11/25 09:35 15 MG Azithromycin 250 ml @ 125 mls/hr DAILY IV 05/10/25 10:00 05/11/25 09:36 125 MLS/HR Methylprednisolone Sodium Succinate 40 mg BID IV 05/09/25 22:00 05/11/25 09:27 40 MG Pantoprazole Sodium 40 mg BID IV 05/09/25 22:00 05/11/25 09:45 40 MG Sucralfate 1 gm QID@0600,1130,1700,2200 PO 05/09/25 17:00 05/11/25 12:16 1 GM Albuterol 2.5 mg Q4HR NEB 05/09/25 14:00 05/11/25 13:50 2.5 MG Ipratropium [place] 0.5 mg Q4HR NEB 05/09/25 14:00 05/11/25 13:50 0.5 MG Vancomycin HCl 0 ml @ 0 mls/hr PER PHARMACY IV 05/11/25 09:45 Ceftriaxone Sodium 50 ml @ 100 mls/hr DAILY@09 IV 05/12/25 09:00 Future Hold Examination Patient lying in bed, in no acute distress General: Lucid, afebrile, mucosae are moist Cardiovascular: Normal S1 and S2. No murmurs, gallops or rubs Respiratory: Normal ventilation mechanics. Generalized diffuse expiratory wheezing, coarse rhonchus in bilateral lower lobes. In room air Abdomen: Soft, nontender, no organomegaly, normal bowel sounds MSK/skin: Mobilizes 4 limbs. Skin is dry and warm Neurological: Oriented in 3 spheres. No motor no sensitive deficits. Pupils are isocoric and reactive laboratory and microbiology Laboratory Tests 05/11/25 06:14 Test 05/11/25 06:14 Range/Units Serum Glucose 150 H 74-106 mg/dL Problem List/Assessment/Plan Problem List/Assessment/Plan # Acute respiratory failure # Acute COPD exacerbation # Probable community-acquired pneumonia # Sepsis due to above # Hyperlacticacidemia On admission patient required oxygen therapy with nasal cannula 2 L, currently breathing in room air Currently under empiric IV antibiotic (vancomycin, azithromycin and ceftriaxone) Currently on bronchodilators, IV steroids, IV fluids and IV antibiotics Ordered simon cultures Chest x-ray does not show any evidence of consolidations. # GERD # Transaminitis # Fatty liver # Possible pill esophagitis versus gastritis # Slow small bowel transit vs malabsorption # Constipation # Ruled out pancreatitis # Ruled out small bowel obstruction Small bowel X-ray: Sort Operations Supervisor view of the abdomen demonstrates a nonspecific bowel gas pattern with a few gas-filled mildly distended small bowel loops and gas and moderate stool throughout the colon. Contrast passes through the stomach into the small bowel without delay. No visualized small bowel stricture or other small bowel abnormality on this exam. Contrast is identified within the colon by 30 minutes. This represents a normal small bowel transit time. No small bowel obstruction. Abdomen/Pelvis CT: [id number] stool burden. Small bowel fecalization in the lower pelvis. Currently on IV pantoprazole and sucralfate, improved symptoms. GI consult: Completed endoscopies as outpatient. No inpatient procedure required this time. # Ruled out acute coronary syndrome EKG completed which was sinus rhythm with no ST-elevation. Noncardiac pain. Completed echocardiogram: LVEF 60%, mild left ventricular hypertrophy, left atrial enlargement, trivial pericardial effusion. Cardiology consulted: Signed off. Epigastric pain improved with IV pantoprazole and sucralfate. # Hypertension Amlodipine 5 MG PO daily Lisinopril 15 MG PO bid # Mixed dyslipidemia # Type 2 diabetes mellitus with hyperglycemia, uncontrolled # Ruled out euglycemic diabetic ketoacidosis Atorvastatin 20 MG PO hs On insulin sliding scale Jardiance 10 MG PO daily Goals of care discussed with patient for over 18 minutes: Full code Discussed plan with Dr. Pelayo, patient and nurses: Patient currently on med surge status. Patient persists with hyperlacticacidemia, diffuse wheezing and productive cough. Adjusted IV antibiotic, on IV steroids and IV fluids. Epigastric pain improved with IV pantoprazole sucralfate. Plan discussed with: Patient, Other (Nurses) My Orders My Orders Orders - CM TURPIN RESIDENT Procedure Category Date Status Time Abg W/ Co-Ox RT 05/11/25 Logged 09:39 Lactic Acid W/ Reflex LAB 05/11/25 In Process Order 12:00 Chest Xray 1 View XY 05/11/25 Resulted 09:44 Respiratory Culture PAWEL 05/11/25 Logged W/ Gs 09:44 Blood Culture PAWEL 05/11/25 In Process 09:44 Urine Bacterial PAWEL 05/11/25 Logged Culture 09:44 Mrsa Screen PAWEL 05/11/25 Logged 09:44 Vancomycin Per PHA 05/11/25 In Process Pharmacy 09:45 Ceftriaxone 1gm/50ml PHA 05/12/25 In Process (Rocephin) 09:00 Visit Coding STANDARD RES Billing Provider: BREA PELAYO MD Date of Service if different f: May 11, 2025 Common Visit Codes: [id number] INP/OBS CARE(HIGH) CM TURPIN RESIDENT May 11, 2025 14:51
[2025-05-11] MEDS: DOCUSATE SOD 100 MG CAP PO PRN (22:01)
[2025-05-12] VITALS (18 sets, daily range): BP systolic 115–143; BP diastolic 55–75; PULSE 82–102; RESP 16–19; TEMP 97.6–98.1; O2SAT 89–100
[2025-05-12] MEDS: VANCOMYCIN 1GM/250ML KIT 250 ML IV SCH (05:34)
[2025-05-12 06:35] LABS: Hematocrit 42.5 % (36.0-46.0); Hemoglobin 14.2 g/dL (12.2-16.2); Mean Corpuscular Hemoglobin 30.4 pg (28.0-32.0); Mean Corpuscular Volume 91.0 fL (80.0-100.0); Nucleated Red Blood Cells % 0.1 %
[2025-05-12 06:58] LABS: Albumin 4.1 g/dL (3.2-4.8); Alkaline Phosphatase 68 U/L (46-116); Anion Gap 15 (5-15); BUN/Creatinine Ratio 17.0 (10.0-20.0); Blood Urea Nitrogen 15 mg/dL (9-23); Calcium 9.7 mg/dL (8.7-10.4); Carbon Dioxide 22 mmol/L (20-31); Chloride 106 mmol/L (98-107); Magnesium 2.1 mg/dL (1.6-2.6); Potassium 3.8 mmol/L (3.5-5.1); Sodium 143 mmol/L (136-145); Total Protein 6.8 g/dL (5.7-8.2)
[2025-05-12 06:59] LABS: Bilirubin, Total 0.5 mg/dL (0.2-1.0)
[2025-05-12 07:00] LABS: Alanine Aminotransferase 40 U/L (7-40); Glucose 144 mg/dL (74-106)
[2025-05-12 07:29] LABS: Lactic Acid w/Reflex 3.6 mmol/L (0.4-2.0)
--- NOTE | 2025-05-12 14:19 | DVHPN2 ---
Subjective Patient able to tolerate her diet No pain with swallowing. Denies dysphagia Patient has noticed that she has seems to be burping more after drinking water or fluids No bowel movement for three days Changes from previous H/P or p: No Changes Eyes: No Pain, No Vision change, No Conjunctivae inflammation, No Eyelid inflammation, No Other, No Redness ENT: No Ear pain, No Ear discharge, No Nose pain, No Nose discharge, No Nose congestion, No Mouth pain, No Mouth swelling, No Throat pain, No Throat swelling, No Other Cardiovascular: No Chest Pain, No Palpitations, No Orthopnea, No Paroxysmal Noc. Dyspnea, No Edema, No Lt Headedness, No Other Respiratory: No Cough, No Dry, No Shortness of breath, No SOB with excertion, No Wheezing, No Hemoptysis, No Pleuritic Pain, No Sputum, No Other Gastrointestinal: No Nausea, No Vomiting; Abdominal Pain; No Diarrhea, No Constipation, No Melena, No Hematochezia, No Other Genitourinary: No Dysuria, No Frequency, No Incontinence, No Hematuria, No Retention, No Other Musculoskeletal: No other, No neck pain, No shoulder pain, No arm pain, No back pain, No hand pain, No leg pain, No foot pain Skin: No Rash, No Lesions, No Jaundice, No Bruising, No Other Objective Vitals Vital Signs Date Time Temp Pulse Resp B/P (MAP) Pulse Ox O2 Delivery O2 Flow Rate FiO2 05/12/25 13:00 97.7 84 17 143/75 (97) 96 97.7 05/12/25 08:00 Room Air* 0 21 Intake/Output Intake and Output 05/12/25 07:00 Intake Total 2016 ml Balance 2016 ml Intake Oral 2016 ml # Voids 3 Exam General: NAD, AAOX3 Chest: lung dang clear to auscultation Heart: RRR, no murmur Abdomen: non-distended, no tenderness to palpation, +BS Medications Current Medications Medications Dose Ordered Sig/Marcus Route Start Time Stop Time Status Last Admin Dose Admin Amlodipine Besylate 5 mg DAILY PO 05/09/25 10:00 05/12/25 10:12 5 MG Atorvastatin Calcium 20 mg HS PO 05/09/25 22:00 05/11/25 22:01 20 MG Sodium Chloride 10 ml Q8HR IV 05/09/25 06:00 05/12/25 05:39 10 ML Ondansetron HCl 4 mg Q4HP PRN IV 05/08/25 22:15 Docusate Sodium 100 mg BIDPRN PRN PO 05/08/25 22:15 05/11/25 22:01 100 MG Acetaminophen 650 mg Q6HP PRN PO 05/08/25 22:15 Sodium Chloride 1,000 ml @ 75 mls/hr [id number] IV 05/09/25 08:30 05/11/25 20:11 75 MLS/HR Guaifenesin/ Dextromethorphan 10 ml Q4HP PRN PO 05/09/25 11:00 05/10/25 18:57 10 ML Empaglifozin 10 mg DAILY PO 05/10/25 10:00 05/12/25 10:11 10 MG Diagnostic Test (Pha) 1 strip ACHS 05/09/25 11:30 05/12/25 11:37 1 STRIP Insulin Human Regular ACHS SC 05/09/25 11:30 05/12/25 05:43 2 UNITS Dextrose 50 ml UD PRN IV 05/09/25 11:00 Lisinopril 15 mg BID PO 05/10/25 10:00 05/12/25 10:16 15 MG Azithromycin 250 ml @ 125 mls/hr DAILY IV 05/10/25 10:00 05/12/25 10:10 125 MLS/HR Methylprednisolone Sodium Succinate 40 mg BID IV 05/09/25 22:00 05/12/25 10:10 40 MG Pantoprazole Sodium 40 mg BID IV 05/09/25 22:00 05/12/25 10:10 40 MG Sucralfate 1 gm QID@0600,1130,1700,2200 PO 05/09/25 17:00 05/12/25 11:37 1 GM Albuterol 2.5 mg Q4HR NEB 05/09/25 14:00 05/12/25 10:48 2.5 MG Ipratropium [place] 0.5 mg Q4HR NEB 05/09/25 14:00 05/12/25 10:48 0.5 MG Vancomycin HCl 0 ml @ 0 mls/hr PER PHARMACY IV 05/11/25 09:45 Ceftriaxone Sodium 50 ml @ 100 mls/hr DAILY@09 IV 05/12/25 09:00 Hold Vancomycin HCl 250 ml @ 250 mls/hr Q18H IV 05/12/25 06:00 05/12/25 05:34 250 MLS/HR Laboratory Results Laboratory Tests 05/12/25 06:09 Chemistry Test 05/12/25 06:09 Albumin 4.1 g/dL (3.2-4.8) Calcium Level 9.7 mg/dL (8.7-10.4) Magnesium Level 2.1 mg/dL (1.6-2.6) Phosphorus Level 4.1 mg/dL (2.4-5.1) Total Protein 6.8 g/dL (5.7-8.2) LFT Test 05/12/25 06:09 Alanine Aminotransferase (ALT) 40 U/L (7-40) Alkaline Phosphatase 68 U/L (46-116) Aspartate Amino Transferase (AST) 21 U/L (13-40) Total Bilirubin 0.5 mg/dL (0.2-1.0) Urinalysis Test 05/09/25 23:45 Urine Color Colorless (Yellow) Urine Clarity Clear (Clear) Urine pH 6.5 (5.0-9.0) Urine Specific [place] 1.012 (1.001-1.035) Urine Protein Negative (Negative) Urine Ketones Negative (Negative) Urine Blood Negative /uL (Negative) Urine Nitrite Negative (Negative) Urine Bilirubin Negative (Negative) Urine Urobilinogen Normal mg/dL (Negative) Urine Leukocyte Esterase 1+ /uL (Negative) Urine RBC None seen /hpf (0 - 4) Urine Microscopic WBC 12 /HPF (0-5) H Urine Squamous Epithelial Cells None seen /hpf (<5) Urine Bacteria None seen /hpf (None Seen) Urine Glucose 4+ mg/dL (Normal) H Microbiology Microbiology Date/Time Source Procedure Growth Status 05/11/25 11:34 Blood Blood Culture - Preliminary NO GROWTH AFTER 24 HOURS OF INCUBATION. Resulted Assessment/Plan Assessment/Plan Abdominal pain improving Possible esophagitis/gastritis History of GERD Constipation Hepatic steatosis Plan: Discussed with Dr. Santillan Lactulose and Colace Protonix and Carafate Diet as tolerated Outpatient GI follow-up recommended Plan discussed with: Patient Date of Service: May 12, 2025 Billing Provider: NORRIS NAJERA Common Visit Codes: [id number] INP/OBS CARE(HIGH) NORRIS NAJERA May 12, 2025 14:19
--- NOTE | 2025-05-12 14:22 | DVHPNRES ---
Progress Note Date Seen: May 12, 2025 Resident Creating Document: LEEANN OLIVEIRA Medical Necessity Reason Pt with a Central, PICC or Fol: No Subjective Review of Systems Tristin Bond is a 85-year-old female who presents to the ED with complaint of burning epigastric abdominal pain which radiates towards retrosternal. Patient reports the pain started last 4 days before her admission, triggered after initiating p.o. antibiotic (doxycycline) due to recently diagnosed bronchitis in urgent care. Patient also believes that spicy food worsened her symptoms. Denies any other associated symptoms including constipation, hematemesis, hematochezia, melena and unintentional weight loss. Past medical history: GERD, High Lipids, HTN, T2DM, fatty liver, COPD with no home oxygen requirement Surgical history: Appendectomy, colonoscopy 10 years ago, bladder polyp removal (5 years ago) Family history: Noncontributory Social history: Patient lives alone in [place] (has no next of kin), became a recently. Tobacco abuse (approximately 30 pack-year history of smoking). Denies current alcohol and other drug abuse. Allergies: Penicillins Home medications: Acetaminophen, amlodipine, atorvastatin Patient seen and examined at bedside. Currently feels better than when she was admitted. Patient is breathing in room air On 05/12/25, Patient reports dizziness, shortness of breath. Continuation of IV steroid for one more day. No acute changes noted. Elevated lactic acid 3.6, monitoring continues. Objective vital signs Vital Sign Date Time Temp Pulse Resp B/P (MAP) Pulse Ox O2 Delivery O2 Flow Rate FiO2 05/12/25 10:58 86 16 99 05/12/25 10:16 127/72 05/12/25 09:00 98.1 98.1 05/12/25 08:00 Room Air* 0 21 Total Intake and Output 05/11/25 05/11/25 05/12/25 15:00 23:00 07:00 Intake Total 800 ml 1217 ml Balance 800 ml 1217 ml medications Current Medications Medications Dose Ordered Sig/Marcus Route Start Time Stop Time Status Last Admin Dose Admin Amlodipine Besylate 5 mg DAILY PO 05/09/25 10:00 05/12/25 10:12 5 MG Atorvastatin Calcium 20 mg HS PO 05/09/25 22:00 05/11/25 22:01 20 MG Sodium Chloride 10 ml Q8HR IV 05/09/25 06:00 05/12/25 05:39 10 ML Ondansetron HCl 4 mg Q4HP PRN IV 05/08/25 22:15 Docusate Sodium 100 mg BIDPRN PRN PO 05/08/25 22:15 05/11/25 22:01 100 MG Acetaminophen 650 mg Q6HP PRN PO 05/08/25 22:15 Sodium Chloride 1,000 ml @ 75 mls/hr [id number] IV 05/09/25 08:30 05/11/25 20:11 75 MLS/HR Guaifenesin/ Dextromethorphan 10 ml Q4HP PRN PO 05/09/25 11:00 05/10/25 18:57 10 ML Empaglifozin 10 mg DAILY PO 05/10/25 10:00 05/12/25 10:11 10 MG Diagnostic Test (Pha) 1 strip ACHS 05/09/25 11:30 05/12/25 11:37 1 STRIP Insulin Human Regular ACHS SC 05/09/25 11:30 05/12/25 05:43 2 UNITS Dextrose 50 ml UD PRN IV 05/09/25 11:00 Lisinopril 15 mg BID PO 05/10/25 10:00 05/12/25 10:16 15 MG Azithromycin 250 ml @ 125 mls/hr DAILY IV 05/10/25 10:00 05/12/25 10:10 125 MLS/HR Methylprednisolone Sodium Succinate 40 mg BID IV 05/09/25 22:00 05/12/25 10:10 40 MG Pantoprazole Sodium 40 mg BID IV 05/09/25 22:00 05/12/25 10:10 40 MG Sucralfate 1 gm QID@0600,1130,1700,2200 PO 05/09/25 17:00 05/12/25 11:37 1 GM Albuterol 2.5 mg Q4HR NEB 05/09/25 14:00 05/12/25 10:48 2.5 MG Ipratropium [place] 0.5 mg Q4HR NEB 05/09/25 14:00 05/12/25 10:48 0.5 MG Vancomycin HCl 0 ml @ 0 mls/hr PER PHARMACY IV 05/11/25 09:45 Ceftriaxone Sodium 50 ml @ 100 mls/hr DAILY@09 IV 05/12/25 09:00 Hold Vancomycin HCl 250 ml @ 250 mls/hr Q18H IV 05/12/25 06:00 05/12/25 05:34 250 MLS/HR Examination Examination Patient lying in bed, in no acute distress General: Lucid, afebrile, mucosae are moist Cardiovascular: Normal S1 and S2. No murmurs, gallops or rubs Respiratory: Normal ventilation mechanics. Generalized diffuse expiratory wheezing, coarse rhonchus in bilateral lower lobes. In room air Abdomen: Soft, nontender, no organomegaly, normal bowel sounds MSK/skin: Mobilizes 4 limbs. Skin is dry and warm Neurological: Oriented in 3 spheres. No motor no sensitive deficits. Pupils are isocoric and reactive laboratory and microbiology Laboratory Tests 05/12/25 06:09 Test 05/12/25 06:09 Range/Units Serum Glucose 144 H 74-106 mg/dL Microbiology Date/Time Source Procedure Growth Status 05/11/25 11:34 Blood Blood Culture - Preliminary NO GROWTH AFTER 24 HOURS OF INCUBATION. Resulted Labs and/or images reviewed: Labs reviewed by me, Image(s) reviewed by me Problem List/Assessment/Plan Problem List/Assessment/Plan Problem List/Assessment/Plan # Acute respiratory failure # Acute COPD exacerbation # Probable community-acquired pneumonia # Sepsis due to above # Hyperlacticacidemia On admission patient required oxygen therapy with nasal cannula 2 L, currently breathing in room air Currently under empiric IV antibiotic (vancomycin, azithromycin and ceftriaxone) Currently on bronchodilators, IV steroids, IV fluids and IV antibiotics Ordered simon cultures Chest x-ray does not show any evidence of consolidations. # GERD # Transaminitis # Fatty liver # Possible pill esophagitis versus gastritis # Slow small bowel transit vs malabsorption # Constipation # Ruled out pancreatitis # Ruled out small bowel obstruction Small bowel X-ray: Proof Clerk view of the abdomen demonstrates a nonspecific bowel gas pattern with a few gas-filled mildly distended small bowel loops and gas and moderate stool throughout the colon. Contrast passes through the stomach into the small bowel without delay. No visualized small bowel stricture or other small bowel abnormality on this exam. Contrast is identified within the colon by 30 minutes. This represents a normal small bowel transit time. No small bowel obstruction. Abdomen/Pelvis CT: [id number] stool burden. Small bowel fecalization in the lower pelvis. Currently on IV pantoprazole and sucralfate, improved symptoms. GI consult: Completed endoscopies as outpatient. No inpatient procedure required this time. # Ruled out acute coronary syndrome EKG completed which was sinus rhythm with no ST-elevation. Noncardiac pain. Completed echocardiogram: LVEF 60%, mild left ventricular hypertrophy, left atrial enlargement, trivial pericardial effusion. Cardiology consulted: Signed off. Epigastric pain improved with IV pantoprazole and sucralfate. # Hypertension Amlodipine 5 MG PO daily Lisinopril 15 MG PO bid # Mixed dyslipidemia # Type 2 diabetes mellitus with hyperglycemia, uncontrolled # Ruled out euglycemic diabetic ketoacidosis Atorvastatin 20 MG PO hs On insulin sliding scale Jardiance 10 MG PO daily Goals of care discussed with patient for over 18 minutes: Full code Discussed plan with Dr. Pelayo, patient and nurses: Patient currently on med surge status. Patient persists with hyperlacticacidemia, diffuse wheezing and productive cough. Adjusted IV antibiotic, on IV steroids and IV fluids. Epigastric pain improved with IV pantoprazole sucralfate. Plan discussed with: Patient (RN), Other Visit Coding STANDARD RES Billing Provider: BREA PELAYO MD Date of Service if different f: May 12, 2025 Common Visit Codes: [id number] INP/OBS CARE(HIGH) LEEANN OLIVEIRA RESIDENT May 12, 2025 14:22
[2025-05-12 23:12] LABS: Lactic Acid w/Reflex 2.9 mmol/L (0.4-2.0)
[2025-05-13] VITALS (20 sets, daily range): BP systolic 124–145; BP diastolic 53–85; PULSE 74–91; RESP 16–19; TEMP 96.9–97.6; O2SAT 91–98
[2025-05-13 05:56] LABS: Hematocrit 43.6 % (36.0-46.0); Hemoglobin 14.4 g/dL (12.2-16.2); Mean Corpuscular Hemoglobin 30.1 pg (28.0-32.0); Mean Corpuscular Volume 91.2 fL (80.0-100.0); Nucleated Red Blood Cells % 0.1 %
[2025-05-13 06:00] LABS: Chloride 106 mmol/L (98-107); Potassium 4.1 mmol/L (3.5-5.1); Sodium 142 mmol/L (136-145)
[2025-05-13 06:01] LABS: Anion Gap 13 (5-15); Carbon Dioxide 23 mmol/L (20-31)
[2025-05-13 06:02] LABS: Calcium 9.7 mg/dL (8.7-10.4)
[2025-05-13 06:06] LABS: BUN/Creatinine Ratio 23.8 (10.0-20.0); Blood Urea Nitrogen 19 mg/dL (9-23)
[2025-05-13 06:16] LABS: Glucose 145 mg/dL (74-106)
[2025-05-13 06:24] LABS: Lactic Acid w/Reflex 3.1 mmol/L (0.4-2.0)
--- NOTE | 2025-05-13 07:13 | DVH ---
CHEST RADIOGRAPH INDICATION: COPD exacerbation TECHNIQUE: Single frontal view of the chest was obtained COMPARISON: XY CHEST XRAY 1 VIEW on DOS: 05/11/25. FINDINGS: Lines and Tubes: None Lungs: No focal consolidation. Pleura: No effusion. No pneumothorax. Cardiomediastinal contours: Unremarkable Bones: No acute osseous abnormality. IMPRESSION: 1. No acute cardiopulmonary disease.
--- NOTE | 2025-05-13 09:40 | DVH ---
EXAM DESCRIPTION: CT CHEST WITHOUT CONTRAST CLINICAL HISTORY: Persistent COPD exacerbation COMPARISON: XY CHEST XRAY 1 VIEW on DOS: 05/13/25, XY CHEST XRAY 1 VIEW on DOS: 05/11/25, XY CHEST PORTABLE on DOS: 05/08/25, CXR2 on DOS: 12/15/21, CHEST TWO VIEWS ROUTINE on DOS: 12/15/21 TECHNIQUE: Non-contrast CT chest was performed. Multiplanar reformatted images were generated. CTDI, DLP = 6.91/239.63 Dose reduction technique with one or more of the following methods was performed: Automated exposure control, adjustment of the mA and/or kV according to patient size, use of iterative reconstruction technique. FINDINGS: Lines / Tubes / Devices: None. Lymph nodes: No suspicious mediastinal, hilar, or axillary lymph nodes. Mediastinum: Normal heart size. No pericardial effusion. Normal caliber of the thoracic aorta. Severe atherosclerotic vascular calcifications. Coronary artery calcifications. Lungs / Airways: 5mm pulmonary nodule in the right upper lobe. No consolidation. No pulmonary edema. The central airways are patent. Pleura: No pleural effusion. No pneumothorax. Soft tissues: Unremarkable Bones: No suspicious osseous lesions. No acute fracture or subluxation. Degenerative changes of the visualized spine. Upper abdomen: Normal. IMPRESSION: 1. No acute abnormality within the chest. 2. A 5 mm pulmonary nodule in the right upper lobe. If the patient is high risk for lung cancer, consider follow-up chest CT in 12 months 3. Coronary artery disease. Severe atherosclerotic vascular disease.
[2025-05-13] MEDS: ENOXAPARIN SOD 40 MG/0.4 ML SYRINGE SC SCH (10:00)
[2025-05-13] MEDS: LACTULOSE 20Gm/30ML SOLN PO SCH (10:20)
--- NOTE | 2025-05-13 12:48 | DVHPNRES ---
Progress Note Date Seen: May 13, 2025 Resident Creating Document: LEEANN OLIVEIRA Medical Necessity Reason Pt with a Central, PICC or Fol: No Subjective Review of Systems Tristin Bond is a 85-year-old female who presents to the ED with complaint of burning epigastric abdominal pain which radiates towards retrosternal. Patient reports the pain started last 4 days before her admission, triggered after initiating p.o. antibiotic (doxycycline) due to recently diagnosed bronchitis in urgent care. Patient also believes that spicy food worsened her symptoms. Denies any other associated symptoms including constipation, hematemesis, hematochezia, melena and unintentional weight loss. Past medical history: GERD, High Lipids, HTN, T2DM, fatty liver, COPD with no home oxygen requirement Surgical history: Appendectomy, colonoscopy 10 years ago, bladder polyp removal (5 years ago) Family history: Noncontributory Social history: Patient lives alone in [place] (has no next of kin), became a recently. Tobacco abuse (approximately 30 pack-year history of smoking). Denies current alcohol and other drug abuse. Allergies: Penicillins Home medications: Acetaminophen, amlodipine, atorvastatin Patient seen and examined at bedside. Currently feels better than when she was admitted. Patient is breathing in room air On 05/12/25, Patient reports dizziness, shortness of breath. Continuation of IV steroid for one more day. No acute changes noted. Elevated lactic acid 3.6, monitoring continues. On 05/13/25, Patient complains of cough with sputum production and wheezing. Lactic acid 2.6 (trending down). Objective vital signs Vital Sign Date Time Temp Pulse Resp B/P (MAP) Pulse Ox O2 Delivery O2 Flow Rate FiO2 05/13/25 10:47 90 16 98 05/13/25 10:40 Room Air 05/13/25 10:40 0 21 05/13/25 10:20 145/85 05/13/25 08:26 97.4 97.4 Total Intake and Output 05/12/25 05/12/25 05/13/25 15:00 23:00 07:00 Intake Total 2200 ml 300 ml Balance 2200 ml 300 ml medications Current Medications Medications Dose Ordered Sig/Marcus Route Start Time Stop Time Status Last Admin Dose Admin Amlodipine Besylate 5 mg DAILY PO 05/09/25 10:00 05/13/25 10:19 5 MG Atorvastatin Calcium 20 mg HS PO 05/09/25 22:00 05/12/25 21:53 20 MG Sodium Chloride 10 ml Q8HR IV 05/09/25 06:00 05/13/25 05:29 10 ML Ondansetron HCl 4 mg Q4HP PRN IV 05/08/25 22:15 Docusate Sodium 100 mg BIDPRN PRN PO 05/08/25 22:15 05/11/25 22:01 100 MG Acetaminophen 650 mg Q6HP PRN PO 05/08/25 22:15 Sodium Chloride 1,000 ml @ 75 mls/hr [id number] IV 05/09/25 08:30 05/13/25 05:38 75 MLS/HR Guaifenesin/ Dextromethorphan 10 ml Q4HP PRN PO 05/09/25 11:00 05/10/25 18:57 10 ML Empaglifozin 10 mg DAILY PO 05/10/25 10:00 05/13/25 10:20 10 MG Diagnostic Test (Pha) 1 strip ACHS 05/09/25 11:30 05/13/25 11:53 1 STRIP Insulin Human Regular ACHS SC 05/09/25 11:30 05/12/25 22:02 3 UNITS Dextrose 50 ml UD PRN IV 05/09/25 11:00 Lisinopril 15 mg BID PO 05/10/25 10:00 05/13/25 10:20 15 MG Azithromycin 250 ml @ 125 mls/hr DAILY IV 05/10/25 10:00 05/13/25 10:18 125 MLS/HR Methylprednisolone Sodium Succinate 40 mg BID IV 05/09/25 22:00 05/13/25 10:19 40 MG Pantoprazole Sodium 40 mg BID IV 05/09/25 22:00 05/13/25 10:18 40 MG Sucralfate 1 gm QID@0600,1130,1700,2200 PO 05/09/25 17:00 05/13/25 11:55 1 GM Albuterol 2.5 mg Q4HR NEB 05/09/25 14:00 05/13/25 10:42 2.5 MG Ipratropium [place] 0.5 mg Q4HR NEB 05/09/25 14:00 05/13/25 10:42 0.5 MG Vancomycin HCl 0 ml @ 0 mls/hr PER PHARMACY IV 05/11/25 09:45 Ceftriaxone Sodium 50 ml @ 100 mls/hr DAILY@09 IV 05/12/25 09:00 Hold Vancomycin HCl 250 ml @ 250 mls/hr Q18H IV 05/12/25 06:00 05/12/25 23:55 250 MLS/HR Lactulose 30 ml DAILY PO 05/13/25 10:00 05/13/25 10:20 30 ML Enoxaparin Sodium 40 mg DAILY SC 05/13/25 10:00 Examination Patient lying in bed, in no acute distress General: Lucid, afebrile, mucosae are moist Cardiovascular: Normal S1 and S2. No murmurs, gallops or rubs Respiratory: Normal ventilation mechanics. Generalized diffuse expiratory wheezing, coarse rhonchus in bilateral lower lobes. In room air Abdomen: Soft, nontender, no organomegaly, normal bowel sounds MSK/skin: Mobilizes 4 limbs. Skin is dry and warm Neurological: Oriented in 3 spheres. No motor no sensitive deficits. Pupils are isocoric and reactive laboratory and microbiology Laboratory Tests 05/13/25 05:29 Test 05/13/25 05:29 Range/Units Serum Glucose 145 H 74-106 mg/dL Microbiology Date/Time Source Procedure Growth Status 05/11/25 11:34 Blood Blood Culture - Preliminary NO GROWTH AFTER 48 HOURS OF INCUBATION. Resulted Labs and/or images reviewed: Labs reviewed by me, Image(s) reviewed by me Problem List/Assessment/Plan Problem List/Assessment/Plan # Acute respiratory failure # Acute COPD exacerbation # Probable community-acquired pneumonia # Sepsis due to above # Hyperlacticacidemia # Pulmonary nodule # Coronary artery disease # Severe atherosclerotic vascular disease On admission patient required oxygen therapy with nasal cannula 2 L, currently breathing in room air Currently under empiric IV antibiotic (vancomycin, azithromycin and ceftriaxone) Currently on bronchodilators, IV steroids, IV fluids and IV antibiotics Ordered simon cultures Chest x-ray does not show any evidence of consolidations. Chest CT: No acute abnormality within the chest. A 5 mm pulmonary nodule in the right upper lobe. Coronary artery disease. Severe atherosclerotic vascular disease. Acetylcysteine inhaler 100 mg # GERD # Transaminitis # Fatty liver # Possible pill esophagitis versus gastritis # Slow small bowel transit vs malabsorption # Constipation # Ruled out pancreatitis # Ruled out small bowel obstruction Small bowel X-ray: Neon Sign Mechanic view of the abdomen demonstrates a nonspecific bowel gas pattern with a few gas-filled mildly distended small bowel loops and gas and moderate stool throughout the colon. Contrast passes through the stomach into the small bowel without delay. No visualized small bowel stricture or other small bowel abnormality on this exam. Contrast is identified within the colon by 30 minutes. This represents a normal small bowel transit time. No small bowel obstruction. Abdomen/Pelvis CT: [id number] stool burden. Small bowel fecalization in the lower pelvis. Currently on IV pantoprazole and sucralfate, improved symptoms. GI consult: Completed endoscopies as outpatient. No inpatient procedure required this time. # Ruled out acute coronary syndrome EKG completed which was sinus rhythm with no ST-elevation. Noncardiac pain. Completed echocardiogram: LVEF 60%, mild left ventricular hypertrophy, left atrial enlargement, trivial pericardial effusion. Cardiology consulted: Signed off. Epigastric pain improved with IV pantoprazole and sucralfate. # Hypertension Amlodipine 5 MG PO daily Lisinopril 15 MG PO bid # Mixed dyslipidemia # Type 2 diabetes mellitus with hyperglycemia, uncontrolled # Ruled out euglycemic diabetic ketoacidosis Atorvastatin 20 MG PO hs On insulin sliding scale Jardiance 10 MG PO daily Goals of care discussed with patient for over 18 minutes: Full code Discussed plan with Dr. Pelayo, patient and nurses: Patient currently on med surge status. Patient persists with hyperlacticacidemia, diffuse wheezing and productive cough. Adjusted IV antibiotic, on IV steroids and IV fluids. Epigastric pain improved with IV pantoprazole sucralfate. Plan discussed with: Patient, Other (RN) Dietary Evaluation Review Comments: Nutrition Recommendation: 1) Consider soft diet 2) Monitor PO intake, lab values, weight trend, and I/O Expected Outcomes/Goals: Lab values to improve FU 3-5 days Visit Coding STANDARD RES Billing Provider: BREA PELAYO MD Date of Service if different f: May 13, 2025 Common Visit Codes: [id number] INP/OBS CARE(HIGH) LEEANN OLIVEIRA RESIDENT May 13, 2025 12:48
--- NOTE | 2025-05-13 13:25 | DVHPN2 ---
Subjective Patient able to tolerate her diet No pain with swallowing. Denies dysphagia Patient has noticed that she has seems to be burping more after drinking water or fluids Patient has had a bowel movement today Patient complaining of wheezing Changes from previous H/P or p: No Changes Eyes: No Pain, No Vision change, No Conjunctivae inflammation, No Eyelid inflammation, No Other, No Redness ENT: No Ear pain, No Ear discharge, No Nose pain, No Nose discharge, No Nose congestion, No Mouth pain, No Mouth swelling, No Throat pain, No Throat swelling, No Other Cardiovascular: No Chest Pain, No Palpitations, No Orthopnea, No Paroxysmal Noc. Dyspnea, No Edema, No Lt Headedness, No Other Respiratory: No Cough, No Dry, No Shortness of breath, No SOB with excertion, No Wheezing, No Hemoptysis, No Pleuritic Pain, No Sputum, No Other Gastrointestinal: No Nausea, No Vomiting; Abdominal Pain; No Diarrhea, No Constipation, No Melena, No Hematochezia, No Other Genitourinary: No Dysuria, No Frequency, No Incontinence, No Hematuria, No Retention, No Other Musculoskeletal: No other, No neck pain, No shoulder pain, No arm pain, No back pain, No hand pain, No leg pain, No foot pain Skin: No Rash, No Lesions, No Jaundice, No Bruising, No Other Objective Vitals Vital Signs Date Time Temp Pulse Resp B/P (MAP) Pulse Ox O2 Delivery O2 Flow Rate FiO2 05/13/25 10:47 90 16 98 05/13/25 10:40 Room Air 05/13/25 10:40 0 21 05/13/25 10:20 145/85 05/13/25 08:26 97.4 97.4 Intake/Output Intake and Output 05/13/25 07:00 Intake Total 2500 ml Balance 2500 ml Intake Oral 1250 ml IV Total 1250 ml # Voids 7 # Bowel Movements 1 Exam General: NAD, AAOX3 Chest: lung dang clear to auscultation Heart: RRR, no murmur Abdomen: non-distended, no tenderness to palpation, +BS Medications Current Medications Medications Dose Ordered Sig/Marcus Route Start Time Stop Time Status Last Admin Dose Admin Amlodipine Besylate 5 mg DAILY PO 05/09/25 10:00 05/13/25 10:19 5 MG Atorvastatin Calcium 20 mg HS PO 05/09/25 22:00 05/12/25 21:53 20 MG Sodium Chloride 10 ml Q8HR IV 05/09/25 06:00 05/13/25 05:29 10 ML Ondansetron HCl 4 mg Q4HP PRN IV 05/08/25 22:15 Docusate Sodium 100 mg BIDPRN PRN PO 05/08/25 22:15 05/11/25 22:01 100 MG Acetaminophen 650 mg Q6HP PRN PO 05/08/25 22:15 Sodium Chloride 1,000 ml @ 75 mls/hr [id number] IV 05/09/25 08:30 05/13/25 05:38 75 MLS/HR Guaifenesin/ Dextromethorphan 10 ml Q4HP PRN PO 05/09/25 11:00 05/10/25 18:57 10 ML Empaglifozin 10 mg DAILY PO 05/10/25 10:00 05/13/25 10:20 10 MG Diagnostic Test (Pha) 1 strip ACHS 05/09/25 11:30 05/13/25 11:53 1 STRIP Insulin Human Regular ACHS SC 05/09/25 11:30 05/12/25 22:02 3 UNITS Dextrose 50 ml UD PRN IV 05/09/25 11:00 Lisinopril 15 mg BID PO 05/10/25 10:00 05/13/25 10:20 15 MG Azithromycin 250 ml @ 125 mls/hr DAILY IV 05/10/25 10:00 05/13/25 10:18 125 MLS/HR Methylprednisolone Sodium Succinate 40 mg BID IV 05/09/25 22:00 05/13/25 10:19 40 MG Pantoprazole Sodium 40 mg BID IV 05/09/25 22:00 05/13/25 10:18 40 MG Sucralfate 1 gm QID@0600,1130,1700,2200 PO 05/09/25 17:00 05/13/25 11:55 1 GM Albuterol 2.5 mg Q4HR NEB 05/09/25 14:00 05/13/25 10:42 2.5 MG Ipratropium [place] 0.5 mg Q4HR NEB 05/09/25 14:00 05/13/25 10:42 0.5 MG Vancomycin HCl 0 ml @ 0 mls/hr PER PHARMACY IV 05/11/25 09:45 Ceftriaxone Sodium 50 ml @ 100 mls/hr DAILY@09 IV 05/12/25 09:00 Hold Vancomycin HCl 250 ml @ 250 mls/hr Q18H IV 05/12/25 06:00 05/12/25 23:55 250 MLS/HR Lactulose 30 ml DAILY PO 05/13/25 10:00 05/13/25 10:20 30 ML Enoxaparin Sodium 40 mg DAILY SC 05/13/25 10:00 Acetylcysteine 100 mg Q8HR NEB 05/13/25 18:00 Laboratory Results Laboratory Tests 05/13/25 05:29 Chemistry Test 05/13/25 05:29 Calcium Level 9.7 mg/dL (8.7-10.4) Urinalysis Test 05/09/25 23:45 Urine Color Colorless (Yellow) Urine Clarity Clear (Clear) Urine pH 6.5 (5.0-9.0) Urine Specific [place] 1.012 (1.001-1.035) Urine Protein Negative (Negative) Urine Ketones Negative (Negative) Urine Blood Negative /uL (Negative) Urine Nitrite Negative (Negative) Urine Bilirubin Negative (Negative) Urine Urobilinogen Normal mg/dL (Negative) Urine Leukocyte Esterase 1+ /uL (Negative) Urine RBC None seen /hpf (0 - 4) Urine Microscopic WBC 12 /HPF (0-5) H Urine Squamous Epithelial Cells None seen /hpf (<5) Urine Bacteria None seen /hpf (None Seen) Urine Glucose 4+ mg/dL (Normal) H Microbiology Microbiology Date/Time Source Procedure Growth Status 05/11/25 11:34 Blood Blood Culture - Preliminary NO GROWTH AFTER 48 HOURS OF INCUBATION. Resulted Labs and/or images reviewed: Labs reviewed by me, Image(s) reviewed by me Assessment/Plan Assessment/Plan Abdominal pain improving Possible esophagitis/gastritis History of GERD Constipation Hepatic steatosis Plan: Discussed with Dr. Santillan Lactulose and Colace Protonix and Carafate Diet as tolerated Outpatient GI follow-up recommended We will sign off on this patient from a GI point of view Plan discussed with: Patient, Other (RN) My Orders Orders - NORRIS NAJERA Procedure Category Date Status Time Lactulose Oral PHA 05/13/25 In Process 10:00 Date of Service: May 13, 2025 Billing Provider: NORRIS NAJERA Common Visit Codes: [id number] INP/OBS CARE(HIGH) NORRIS NAJERA May 13, 2025 13:25
[2025-05-13] MEDS ORDERED: ACETYLCYSTEINE 10 %(100MG/ML) SOL 4ML NEB SCH ×2 (18:00)
[2025-05-13] MEDS: VANCOMYCIN 1.25GM/250ML 250 ML IV SCH (18:09)
[2025-05-13] MEDS: ACETYLCYSTEINE 10 %(100MG/ML) SOL 4ML NEB SCH (22:41)
[2025-05-14] VITALS (12 sets, daily range): BP systolic 115–142; BP diastolic 68–77; PULSE 78–99; RESP 16–18; TEMP 35.7; O2SAT 92–100
[2025-05-14 06:14] LABS: Hematocrit 41.0 % (36.0-46.0); Hemoglobin 13.9 g/dL (12.2-16.2); Mean Corpuscular Hemoglobin 27.5 pg (28.0-32.0); Mean Corpuscular Volume 81.0 fL (80.0-100.0); Nucleated Red Blood Cells % 1.2 %
[2025-05-14 06:25] LABS: Anion Gap 9 (5-15); Carbon Dioxide 27 mmol/L (20-31); Chloride 103 mmol/L (98-107); Potassium 4.2 mmol/L (3.5-5.1); Sodium 139 mmol/L (136-145)
[2025-05-14 06:26] LABS: Calcium 9.0 mg/dL (8.7-10.4)
[2025-05-14 06:32] LABS: BUN/Creatinine Ratio 22.7 (10.0-20.0); Blood Urea Nitrogen 15 mg/dL (9-23); Magnesium 1.8 mg/dL (1.6-2.6)
[2025-05-14 06:37] LABS: Glucose 163 mg/dL (74-106)
[2025-05-14] MEDS: MAGNESIUM SULFATE 1GM/100ML 100 ML IV ONE (10:06)
--- NOTE | 2025-05-14 10:33 | DVHDSRES ---
Discharge Summary Date of Admission Resident Creating Document: LEEANN OLIVEIRA RESIDENT May 08, 2025 at 23:49 Date of Discharge: May 14, 2025 Admitting Diagnosis epigastric pain Labs/Diagnostic Data: Laboratory Results Test 05/14/25 05:54 05/14/25 05:52 05/13/25 16:49 05/12/25 06:09 POC Glucose 136 mg/dl (70-106) White Blood Count 7.0 10^3/uL (4.4-10.8) Red Blood Count 5.06 10^6/uL (4.0-5.20) Hemoglobin 13.9 g/dL (12.2-16.2) Hematocrit 41.0 % (36.0-46.0) Mean Corpuscular Volume 81.0 fL (80.0-100.0) Mean Corpuscular Hemoglobin 27.5 pg (28.0-32.0) Mean Corpuscular Hemoglobin Concent 33.9 g/dL (32.0-36.0) Red Cell Distribution Width 15.9 % (11.8-14.3) Platelet Count 212 10^3/uL (140-450) Mean Platelet Volume 8.0 fL (6.9-10.8) Neutrophils (%) (Auto) 61.3 % (37.0-80.0) Lymphocytes (%) (Auto) 27.4 % (10.0-50.0) Monocytes (%) (Auto) 9.1 % (0.0-12.0) Eosinophils (%) (Auto) 1.6 % (0.0-7.0) Basophils (%) (Auto) 0.6 % (0.0-2.0) Neutrophils # (Auto) 4.3 10 ^3/uL (1.6-8.6) Lymphocytes # (Auto) 1.9 10 ^3/uL (0.4-5.4) Monocytes # (Auto) 0.6 10 ^3/uL (0-1.3) Eosinophils # (Auto) 0.1 10 ^3/uL (0-0.8) Basophils # (Auto) 0 10 ^3/uL (0-0.2) Nucleated Red Blood Cells 1.2 % Sodium Level 139 mmol/L (136-145) Potassium Level 4.2 mmol/L (3.5-5.1) Chloride Level 103 mmol/L (98-107) Carbon Dioxide Level 27 mmol/L (20-31) Anion Gap 9 (5-15) Blood Urea Nitrogen 15 mg/dL (9-23) Creatinine 0.66 mg/dL (0.550-1.02) Glomerular Filtration Rate Calc 87 mL/min (>90) BUN/Creatinine Ratio 22.7 (10.0-20.0) Serum Glucose 163 mg/dL (74-106) Lactic Acid Level 1.0 mmol/L (0.4-2.0) Calcium Level 9.0 mg/dL (8.7-10.4) Magnesium Level 1.8 mg/dL (1.6-2.6) Vancomycin Level Trough 8.6 ug/mL (5-10) Phosphorus Level 4.1 mg/dL (2.4-5.1) Total Bilirubin 0.5 mg/dL (0.2-1.0) Aspartate Amino Transferase (AST) 21 U/L (13-40) Alanine Aminotransferase (ALT) 40 U/L (7-40) Alkaline Phosphatase 68 U/L (46-116) Total Protein 6.8 g/dL (5.7-8.2) Albumin 4.1 g/dL (3.2-4.8) Test 05/11/25 09:49 05/10/25 05:43 05/09/25 23:45 05/09/25 14:00 Blood Gas Specimen Type Arterial Blood Gas Sample Site Left radial Blood Gas Patient Temperature 37.0 Arterial Blood Date Drawn [id number] Arterial Blood pH 7.408 (7.350-7.450) Arterial Blood Partial Pressure CO2 31.7 mmHg (32.0-45.0) Arterial Blood Partial Pressure O2 71.4 mmHg (83.0-108.0) Arterial Blood HCO3 19.6 mmol/L (21.0-28.0) Arterial Blood Oxygen Saturation 93.1 % (94.0-98.0) Arterial Blood Base Excess -3.9 mmol/L (-2.0-3.0) Arterial Blood Oxyhemoglobin 92.3 % (94.0-98.0) Arterial Blood Carboxyhemoglobin 0.5 % (0.5-1.5) Arterial Blood Methemoglobin 0.4 % (0.0-1.5) Arterial Blood Deoxyhemoglobin 6.8 % (0.0-5.0) Errol Test Positive Blood Gas Total Hemoglobin 15.50 g/dL (12.0-16.0) Blood Gas Liter Flow 2.00 Blood Gas Modality Nasal cannula FiO2 % 21.0 Lipase 33 U/L (12-53) Urine Color Colorless (Yellow) Urine Clarity Clear (Clear) Urine pH 6.5 (5.0-9.0) Urine Specific [place] 1.012 (1.001-1.035) Urine Protein Negative (Negative) Urine Ketones Negative (Negative) Urine Blood Negative /uL (Negative) Urine Nitrite Negative (Negative) Urine Bilirubin Negative (Negative) Urine Urobilinogen Normal mg/dL (Negative) Urine Leukocyte Esterase 1+ /uL (Negative) Urine RBC None seen /hpf (0 - 4) Urine Microscopic WBC 12 /HPF (0-5) Urine Squamous Epithelial Cells None seen /hpf (<5) Urine Bacteria None seen /hpf (None Seen) Urine Glucose 4+ mg/dL (Normal) Urine Opiates Screen Neg (NEGATIVE) Urine Fentanyl Screen Neg (NEGATIVE) Urine Barbiturates Screen Neg (NEGATIVE) Urine Phencyclidine Screen Neg (NEGATIVE) Urine Amphetamines Screen Neg (NEGATIVE) Urine Benzodiazepines Screen Neg (NEGATIVE) Urine Cocaine Screen Neg (NEGATIVE) Urine Cannabinoids Screen Neg (NEGATIVE) Influenza Type A Antigen Negative (Negative) Influenza Type B Antigen Negative (Negative) SARS-CoV-2 Antigen (Rapid) Negative (NEGATIVE) Test 05/09/25 10:24 Prothrombin Time 10.3 sec (9.3-11.8) Prothrombin Time INR 0.97 (0.9-1.15) Activated Partial Thromboplast Time 28.8 SEC (24.5-34.5) Hemoglobin A1c 6.3 % A1C (<5.7) Triglycerides Level 82 mg/dL (< 150) Cholesterol Level 137 mg/dL (< 200) LDL Cholesterol 66 mg/dL (< 100) HDL Cholesterol 62 mg/dL (40-59) Vitamin B12 Level 703 pg/mL (211-911) Vitamin D 25-Hydroxy 40.0 ng/mL (30.0-100) Thyroid Stimulating Hormone (TSH) 1.07 uIU/mL (0.55-4.78) Other Laboratory Tests 05/14/25 05:52 Brief Hx & Hospital Course: Vlad Pena is an 85-year-old female who presented to the emergency department with burning epigastric pain radiating retrosternally for four days. The pain began after starting oral doxycycline for bronchitis and was worsened by spicy food. She denied nausea, vomiting, hematemesis, melena, hematochezia, constipation, and unintentional weight loss. Her past medical history includes GERD, hyperlipidemia, hypertension, type 2 diabetes mellitus, fatty liver, and COPD without home oxygen. Her surgical history includes appendectomy, colonoscopy ten years ago, and bladder polyp removal five years ago. She lives alone in [place], is recently , and has a 30 pack-year smoking history. She denies alcohol and illicit drug use. She is allergic to penicillins and takes acetaminophen, amlodipine, and atorvastatin at home. Hospital course On admission, the patient required oxygen via nasal cannula at 2 liters for acute respiratory failure due to COPD exacerbation and probable community- acquired pneumonia with sepsis and hyperlacticacidemia. [place] cultures were obtained, and empiric intravenous antibiotics including vancomycin, azithromycin, and ceftriaxone were started along with bronchodilators, intravenous steroids, and intravenous fluids. Lactic acid was initially 3.6 and trended down to 2.6. Chest X-ray showed no consolidation, and CT chest revealed a 5 mm right upper lobe pulmonary nodule, coronary artery disease, and severe atherosclerotic vascular disease. The patient also complained of epigastric pain likely due to pill esophagitis versus gastritis. CT abdomen and pelvis showed [id number] stool burden and small bowel fecalization. Small bowel obstruction was ruled out. Symptoms improved with intravenous pantoprazole and sucralfate. Gastroenterology recommended no inpatient endoscopy. Cardiac workup ruled out acute coronary syndrome. EKG showed sinus rhythm without ST elevation, and echocardiogram revealed LVEF of 60%, mild left ventricular hypertrophy, left atrial enlargement, and trivial pericardial effusion. Cardiology signed off after evaluation. Hypertension was managed with amlodipine and lisinopril. Mixed dyslipidemia was treated with atorvastatin. Type 2 diabetes mellitus was managed with sliding scale insulin and Jardiance, and euglycemic diabetic ketoacidosis was ruled out. She is currently breathing room air and clinically improved. On evaluation today, she states she is well, pain is manageable. Her vitals have remained stable for discharge home, follow up visit in discharge clinic. All medications and recommendations were thoroughly explained and the patient states he understands and agrees. Detailed discussion held with patient at bedside were all questions were answered and concerns were addressed. The patient was discharged in stable condition on oral prednisone and pantoprazole. She was instructed to follow up with pulmonology and primary care for ongoing management of COPD, pulmonary nodule, and chronic conditions. Examination Patient lying in bed, in no acute distress General: Lucid, afebrile, mucosae are moist Cardiovascular: Normal S1 and S2. No murmurs, gallops or rubs Respiratory: Normal ventilation mechanics. Generalized diffuse expiratory wheezing, coarse rhonchus in bilateral lower lobes. In room air Abdomen: Soft, nontender, no organomegaly, normal bowel sounds MSK/skin: Mobilizes 4 limbs. Skin is dry and warm Neurological: Oriented in 3 spheres. No motor no sensitive deficits. Pupils are isocoric and reactive Operations or Procedures PATIENT: VLAD PENA ACCT: [id number] UNIT: [id number] : 1940 LOC: CENTRAL ROOM / BED: [facility] / AGE / SEX: 85 / F ADM STATUS: ADM IN SERVICE 0700 ORDERING PHYSICIAN: CM TURPIN RESIDENT PROCEDURE(s): CX2CT - CHEST WITHOUT CONTRAST REASON: Persistent COPD exacerbation ORDER NUMBER(s): [id number], ACCESSION NUMBER(s): [id number] EXAM DESCRIPTION: CT CHEST WITHOUT CONTRAST CLINICAL HISTORY: Persistent COPD exacerbation COMPARISON: XY CHEST XRAY 1 VIEW on DOS: 05/13/25, XY CHEST XRAY 1 VIEW on DOS: 05/11/25, XY CHEST PORTABLE on DOS: 05/08/25, CXR2 on DOS: 12/15/21, CHEST TWO VIEWS ROUTINE on DOS: 12/15/21 TECHNIQUE: Non-contrast CT chest was performed. Multiplanar reformatted images were generated. CTDI, DLP = 6.91/239.63 Dose reduction technique with one or more of the following methods was performed: Automated exposure control, adjustment of the mA and/or kV according to patient size, use of iterative reconstruction technique. FINDINGS: Lines / Tubes / Devices: None. Lymph nodes: No suspicious mediastinal, hilar, or axillary lymph nodes. Mediastinum: Normal heart size. No pericardial effusion. Normal caliber of the thoracic aorta. Severe atherosclerotic vascular calcifications. Coronary artery calcifications. Lungs / Airways: 5mm pulmonary nodule in the right upper lobe. No consolidation. No pulmonary edema. The central airways are patent. Pleura: No pleural effusion. No pneumothorax. Soft tissues: Unremarkable Bones: No suspicious osseous lesions. No acute fracture or subluxation. Degenerative changes of the visualized spine. Upper abdomen: Normal. IMPRESSION: 1. No acute abnormality within the chest. 2. A 5 mm pulmonary nodule in the right upper lobe. If the patient is high risk for lung cancer, consider follow-up chest CT in 12 months 3. Coronary artery disease. Severe atherosclerotic vascular disease. - PATIENT: VLAD PENA ACCT: [id number] UNIT: [id number] : 1940 LOC: CENTRAL ROOM / BED: [facility] / B AGE / SEX: 85 / F ADM STATUS: ADM IN SERVICE 0400 ORDERING PHYSICIAN: CM TURPIN RESIDENT PROCEDURE(s): CXR1 - CHEST XRAY 1 VIEW REASON: COPD exacerbation ORDER NUMBER(s): [id number], ACCESSION NUMBER(s): [id number] CHEST RADIOGRAPH INDICATION: COPD exacerbation TECHNIQUE: Single frontal view of the chest was obtained COMPARISON: XY CHEST XRAY 1 VIEW on DOS: 05/11/25. FINDINGS: Lines and Tubes: None Lungs: No focal consolidation. Pleura: No effusion. No pneumothorax. Cardiomediastinal contours: Unremarkable Bones: No acute osseous abnormality. IMPRESSION: 1. No acute cardiopulmonary disease. - PATIENT: VLAD PENA Chiquis ACCT: [id number] UNIT: [id number] : 1940 LOC: CENTRAL ROOM / BED: [address] [place] [address] AGE / SEX: 85 / F ADM STATUS: ADM IN SERVICE 0944 ORDERING PHYSICIAN: CM TURPIN PROCEDURE(s): CXR1 - CHEST XRAY 1 VIEW REASON: PNA ORDER NUMBER(s): [id number], ACCESSION NUMBER(s): [id number] CHEST RADIOGRAPH INDICATION: PNA TECHNIQUE: Single frontal view of the chest was obtained COMPARISON: XY CHEST PORTABLE on DOS: 05/08/25, CXR2 on DOS: 12/15/21, CHEST TWO VIEWS ROUTINE on DOS: 12/15/21, CHEST TWO VIEWS ROUTINE on DOS: 06/04/21, CHEST TWO VIEWS ROUTINE on DOS: 04/10/21 FINDINGS: Lines and Tubes: None Lungs: No focal consolidation. Pleura: No effusion. No pneumothorax. Cardiomediastinal contours: Unremarkable Bones: No acute osseous abnormality. IMPRESSION: No acute cardiopulmonary disease. - PATIENT: VLAD PENA ACCT: [id number] UNIT: [id number] : 1940 LOC: CENTRAL ROOM / BED: [facility]0 / B AGE / SEX: 85 / F ADM STATUS: ADM IN SERVICE 30 ORDERING PHYSICIAN: CM TURPIN RESIDENT PROCEDURE(s): LIVUS - LIVER REASON: Transaminitis, pancreatitis ORDER NUMBER(s): [id number], ACCESSION NUMBER(s): [id number] INDICATION: Transaminitis, pancreatitis TECHNIQUE: Multiple real-time sonographic images of the abdomen were obtained. COMPARISON: ALYSON on DOS: 10/20/21 FINDINGS: The liver is heterogeneous in echogenicity. The liver measures 14cm. No intrahepatic biliary ductal dilatation is noted. The gallbladder wall measures 0.1 cm and is unremarkable. No gallstones or sludge is seen. The common duct measures 0.5 cm and is unremarkable. No pericholecystic fluid is noted. The right kidney measures 12cm. No hydronephrosis. The pancreas is not well visualized due to obscuration from bowel gas. The visualized portions of the IVC and aorta are grossly unremarkable. IMPRESSION: HEPATIC STEATOSIS. - PATIENT: VLAD PENA ACCT: [id number] UNIT: [id number] : 1940 LOC: CENTRAL ROOM / BED: [facility]0 / B AGE / SEX: 85 / F ADM STATUS: ADM IN SERVICE 0 ORDERING PHYSICIAN: CM TURPIN PROCEDURE(s): SMBG - SMALL BOWEL SERIES-W GASTROGRA REASON: R/O SBO ORDER NUMBER(s): [id number], ACCESSION NUMBER(s): [id number] Procedure: XY SMALL BOWEL SERIES-W GASTROGRA Reason for study/Clinical History: Rule out small-bowel obstruction. Comparison Study: CT ABD PELVIS WO CONTRAST on DOS: 01/26/21, KUB ABDOMEN SINGLE VIEW on DOS: 09/18/18 Technique: Single contrast small bowel series performed. 240 mL gastric view was administered. FINDINGS/IMPRESSION: Lead Press Operator view of the abdomen demonstrates a nonspecific bowel gas pattern with a few gas-filled mildly distended small bowel loops and gas and moderate stool throughout the colon. Contrast passes through the stomach into the small bowel without delay. No visualized small bowel stricture or other small bowel abnormality on this exam. Contrast is identified within the colon by 30 minutes. This represents a normal small bowel transit time. No small bowel obstruction. - PATIENT: VLAD PENA ACCT: [id number] UNIT: [id number] : 1940 LOC: ER ROOM / BED: / AGE / SEX: 85 / F ADM STATUS: REG ER SERVICE 1318 ORDERING PHYSICIAN: BECK RODRIGUEZ MD PROCEDURE(s): ABPL - CT AB PEL WO CON-NO ORAL OR IV REASON: abdominal pain ORDER NUMBER(s): [id number], ACCESSION NUMBER(s): [id number] EXAM: CT CT AB PEL WO CON-NO ORAL OR IV INDICATION: abdominal pain TECHNIQUE: Volumetric multidetector CT images of the abdomen and pelvis were obtained without contrast. All CT scans at this facility use dose modulation, iterative reconstruction, and/or weight based dosing when appropriate to reduce radiation dose to as low as reasonably achievable. COMPARISON: CT ABD PELVIS WO CONTRAST on DOS: 01/26/21 FINDINGS: [LOWER CHEST]: The partially visualized lung bases are clear without a pleural effusion. The cardiac size is normal without pericardial effusion. Coronary artery calcifications. [LIVER]: Normal hepatic size without suspicious focal lesion. [GALLBLADDER AND BILIARY TREE]: No cholelithiasis. [SPLEEN]: Unremarkable. [PANCREAS]: Unremarkable. [ADRENAL GLANDS]: Unremarkable [KIDNEYS]: Benign-appearing cysts of the left posterior inferior kidney. No hydronephrosis. No nephroureterolithiasis. No suspicious focal lesion. [BLADDER]: Unremarkable for the degree distention. [REPRODUCTIVE ORGANS]: Unremarkable. [BOWEL/MESENTERY]: Stomach is normal. Ufto-qm-afahbwgy stool burden. Ascending colonic diverticulosis. Appendix is poorly visualized. Appearance of small bowel fecalization in the lower pelvis. No CT evidence of bowel obstruction. [ASCITES]: Absent [LYMPHADENOPATHY]: No pathologically enlarged lymph nodes by CT size criteria [VASCULATURE]: No aneurysmal dilatation. [ABDOMINAL WALL]: Gluteal subcutaneous adipose tissue calcifications. Unremarkable. [MUSCULOSKELETAL]: No acute fracture or aggressive focal osseous lesion. Apposing degenerative change at L4-5. Multifocal degenerative change of the visualized spine. IMPRESSION: 1. Kpmb-sg-brmopcjh stool burden. 2. Correlate for constipation. 3. Small bowel fecalization in the lower pelvis. 4. Correlate for slow small bowel transit versus malabsorption. - PATIENT: VLAD PENA ACCT: [id number] UNIT: [id number] : 1940 LOC: ER ROOM / BED: / AGE / SEX: 85 / F ADM STATUS: REG ER SERVICE 1221 ORDERING PHYSICIAN: BECK RODRIGUEZ MD PROCEDURE(s): CXRP - CHEST PORTABLE REASON: epigastric pain ORDER NUMBER(s): [id number], ACCESSION NUMBER(s): [id number] CLINICAL HISTORY: epigastric pain TECHNIQUE: Single view of the chest was obtained. COMPARISON: CXR2 on DOS: 12/15/21, CHEST TWO VIEWS ROUTINE on DOS: 12/15/21, CHEST TWO VIEWS ROUTINE on DOS: 06/04/21, CHEST TWO VIEWS ROUTINE on DOS: 04/10/21 FINDINGS: The heart size and pulmonary vasculature are normal. The lungs are clear. IMPRESSION: NO ACUTE CARDIOPULMONARY PROCESS. - PATIENT: VLAD PENA Chiquis ACCT: [id number] UNIT: [id number] : 1940 LOC: CENTRAL ROOM / BED: [address] [place] [address] AGE / SEX: 85 / F ADM STATUS: ADM IN SERVICE 1145 ORDERING PHYSICIAN: CM TURPIN RESIDENT PROCEDURE(s): ECIDC - ECHO 2D MODE CARDIAC DOP REASON: Chest pain ORDER NUMBER(s): [id number], ACCESSION NUMBER(s): [id number] APPROVED REPORT EXAM: Two-dimensional and M-mode echocardiogram with Doppler and color Doppler. Blood Pressure: 146/71 mmHg INDICATION Chest Pain RISK FACTORS Height: 5'4", Weight: 151 DIMENSIONS LVDd 4.0 (3.8-5.7cm) LA (2D) (1.9-4.0cm) Aortic Root 3.4 (2.0- 3.7cm) LVDs 2.8 (2.5-4.0cm) LA (MM) (1.9-4.0cm) Aortic Cusp Exc 1.8 (1.5- 2.0cm) EF (%) 60.0 (55-70%) Rt. Atrium (1.9-4.0cm) Asc. Aorta cm IVSd 0.8 (0.7-1.1cm) RV (D) (1.8-2.4cm) PWd 1.0 (0.7-1.1cm) Mitral Valve Mitral Mitral Stenosis E/A ratio 0.0 2D MVA cm2 Aortic Valve Aortic Valve Aortic Stenosis V1 0.88m/s AO Mean GR. 3mmHg V2 1.26m/s AO Peak GR. 6mmHg LVOT Diameter 2.0 (1.8-2.4cm) Doppler NATE 2.19cm2 Other Information Quality : Limited Rhythm : Technically limited study due to body habitus. Conclusion lvef 60% mild LVH normal rv function left atrium enlarged no severe valve abnormalities noted trivial pericardial effusion noted SIGNED BY: KWASI HILL MD SIGNED DATE/TIME: 05/10/25 0843 - PATIENT: VLAD PENA ACCT: [id number] : 1940 LOC: CENTRAL ROOM / BED: 0220 / B AGE / SEX: 85 / F ADM STATUS: ADM IN SERVICE UNIT: [id number] ORDERING PHYSICIAN: SONIA VARGAS MD PROCEDURE(s): EKG - ELECTROCARDIGRAM ORDER NUMBER(s): [id number], ACCESSION NUMBER(s): [id number] [facility] Test Date: 2025-05-08 Test Time: 10:54:38 Pat Name: VLAD PENA Department: ER Room: 0220 B Gender: F 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 : 1940 Requested By: SONIA VARGAS Order Number: [id number] Reading MD: Jakob Dasilva Measurements Intervals [place] Rate: 72 P: 70 VT: 179 QRS: 15 QRSD: 83 T: 33 QT: 392 QTc: 430 Interpretive Statements Sinus rhythm Consider left ventricular hypertrophy Electronically Signed On 05-13-2025 19:06:00 PST by Jakob Dasilva Condition at Discharge: Stable Final Diagnosis/Problems List # Acute respiratory failure # Acute COPD exacerbation # Probable community-acquired pneumonia # Sepsis due to above # Hyperlacticacidemia # Pulmonary nodule # Coronary artery disease # Severe atherosclerotic vascular disease # GERD # Transaminitis # Fatty liver # Possible pill esophagitis versus gastritis # Slow small bowel transit vs malabsorption # Constipation # Ruled out pancreatitis # Ruled out small bowel obstruction # Ruled out acute coronary syndrome # Hypertension # Mixed dyslipidemia # Type 2 diabetes mellitus with hyperglycemia, uncontrolled # Ruled out euglycemic diabetic ketoacidosis Discharge Disposition: Home Discharge Instruct/Medications Diet: Cardiac 2g Na,low cholest Activity: Light activity Follow Up/Referral: Follow up with PCP within 1 week Medications: see prescriptions Scheduled Acetaminophen (Acetaminophen), 325 MG PO QID Amlodipine Besylate (Amlodipine Besylate), 5 MG PO DAILY, (Reported) Atorvastatin Calcium (Lipitor), 20 MG PO DAILY, (Reported) Empagliflozin (Jardiance), 10 MG PO DAILY, (Reported) Lisinopril (Lisinopril), 15 MG PO BID, (Reported) Pantoprazole Sodium Sesquihydr (Protonix), 40 MG PO DAILY Prednisone (Prednisone), 40 MG PO DAILY Miscellaneous Medications Omeprazole Magnesium (Omeprazole), 20 MG PO, (Reported) Discharge Statement: "Patient was advised to return to the ER or call 911 if any headaches, dizziness, shortness of breath, chest pain, abdominal pain, bleeding, fevers, or worsening of medical condition. Patient was counseled about treatment plan, medications, possible side effects, patientverbalized understanding. All questions were answered to the best of my ability. This discharge took greater then 30 minutes in planning, reviewing documentation, counseling the patient, and discussing with other team members." ASSESSMENT ASSESSMENT Assessment # Acute respiratory failure # Acute COPD exacerbation # Probable community-acquired pneumonia # Sepsis due to above # Hyperlacticacidemia # Pulmonary nodule # Coronary artery disease # Severe atherosclerotic vascular disease # GERD # Transaminitis # Fatty liver # Possible pill esophagitis versus gastritis # Slow small bowel transit vs malabsorption # Constipation # Ruled out pancreatitis # Ruled out small bowel obstruction # Ruled out acute coronary syndrome # Hypertension # Mixed dyslipidemia # Type 2 diabetes mellitus with hyperglycemia, uncontrolled # Ruled out euglycemic diabetic ketoacidosis Visit Coding STANDARD RES Billing Provider: BREA CLEMENTE MD Date of Service if different f: May 14, 2025 Common Visit Codes: 25411-RLG/OBS DISCH DAY >30min LEEANN OLIVEIRA RESIDENT May 14, 2025 10:33
[2025-05-14] MEDS ORDERED: PRED20TA2 PO (12:41)
[2025-05-14] MEDS ORDERED: PANT40TA2 PO (12:42)
== END 2025-05-14 14:14 | disposition home or self-care (01) | DRG 871 ==
LOC: ER 10:26 → OVERFLOW 23:49 → ER 23:51 → CENTRAL 05-09 02:44
PROVIDERS: ADMIT Internal Medicine Geriatric Medicine; ATTEND Internal Medicine Geriatric Medicine
DX: A41.50 Gram-negative sepsis, unspecified (principal); J15.69 Pneumonia due to other Gram-negative bacteria; J96.00 Acute respiratory failure, unspecified whether with hypoxia or hypercapnia; J15.9 Unspecified bacterial pneumonia; J44.1 Chronic obstructive pulmonary disease with (acute) exacerbation; K76.0 Fatty (change of) liver, not elsewhere classified; E11.65 Type 2 diabetes mellitus with hyperglycemia; I10 Essential (primary) hypertension; K59.00 Constipation, unspecified; E78.2 Mixed hyperlipidemia; K21.9 Gastro-esophageal reflux disease without esophagitis; Z20.822 Contact with and (suspected) exposure to COVID-19; J44.89 Other specified chronic obstructive pulmonary disease; R91.8 Other nonspecific abnormal finding of lung field; I25.10 Atherosclerotic heart disease of native coronary artery without angina pectoris; R74.01 Elevation of levels of liver transaminase levels; K29.70 Gastritis, unspecified, without bleeding; K20.90 Esophagitis, unspecified without bleeding; Z88.0 Allergy status to penicillin
CPT/HCPCS: 36415; 36600; 71045; 71250; 74176; 74250; 76705; 80048; 80053; 80061; 80202; 80307; 81001; 82306; 82607; 82805; 82962; 83036; 83605; 83690; 83735; 84100; 84443; 85025; 85610; 85730; 87040; 87426; 87804; 93005; 93306; 94640; 96365; 99291; G0378; J1815; J2470; Q0162